=== PATIENT | male | born 1945 | race Caucasian/White ===

== ENCOUNTER 2017-08-21 14:23 | Inpatient (IN) | payer MEDICARE, SELFPAY ==
[2017-08-21] MEDS ORDERED: Aspirin 81 MG Tab.Chew CHEW ONE (14:24)
[2017-08-21] MEDS ORDERED: Famotidine 20 MG/2 ML SDV IVPUSH ONE (14:24)
[2017-08-21] MEDS ORDERED: Ticagrelor 90 MG Tab PO ONE (14:24)
--- NOTE | 2017-08-21 14:24 | EDM.PDOC ---
ED HPI GENERAL MEDICAL PROBLEM - General Chief Complaint: Chest Pain Stated Complaint: Chest pain Time Seen by Provider: 08/21/17 14:24 Source of Information: Reports: Patient, Family (, daughter), Old Records ( [facility] EMR. No paper hospital chart available.) History Limitations: Reports: No Limitations - History of Present Illness INITIAL COMMENTS - FREE TEXT/NARRATIVE: Patient was brought to the emergency room via private automobile by his daughter for evaluation of 05/04 persistent retrosternal chest pain/burning with previous 09/03 discomfort at about 10 PM yesterday evening prior to going to bed. He has apparently had similar type symptoms for the last few days and did take some Zantac prior to going to bed yesterday with only some improvement. He has had some nonspecific generalized weakness, nausea, and burping sensation since about 13:30 hours this afternoon. The patient denies any chest pain/ pressure, heart flutter, dizziness, orthostasis, orthopnea, diaphoresis, paresthesias, recent decreased exercise tolerance, or any other anginal-type symptoms. No recent history of other abdominal pain, diarrhea, melena, gross hematochezia, or any food intolerance, including fatty foods, etc.. The patient also denies any recent fever, cough, wheezing, dyspnea, etc.. Onset: Today, Sudden Onset Date: 08/20/17 Onset Time: 22:00 Duration: Intermittent (As above) Location: Reports: Chest. Denies: Head, Face, Neck, Abdomen, Pelvis, Upper Extremity, Left, Upper Extremity, Right, Generalized, Radiates to Quality: Reports: Burning, Same as Previous Episode Severity: Moderate Improves with: Reports: Medication (As above) Worsens with: Reports: None Context: Reports: Other (As above) Associated Symptoms: Reports: Chest Pain, Nausea/Vomiting (No emesis), Weakness (Nonspecific generalized). 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) (As above) Middle Anterior Chest Pain Score (Numeric/FACES): 6 Chest pain Pain Score (Numeric/FACES): 6 - Related Data Allergies Allergy/AdvReac Type Severity Reaction Status Date / Time ibuprofen Allergy Stomach Verified 11/01/16 02:58 Ache Home Meds: Home Meds Desmopressin Acetate 0.1 mg PO BID #60 12/21/16 [Rx] Finasteride [Proscar] 5 mg PO DAILY #30 tablet 12/21/16 [Rx] Levothyroxine 125 mcg PO DAILY #0 12/21/16 [Rx] Tamsulosin [Flomax] 0.4 mg PO BEDTIME #30 cap.er 12/21/16 [Rx] atorvaSTATin [Lipitor] 10 mg PO BEDTIME #30 12/21/16 [Rx] Cholecalciferol (Vitamin D3) [Vitamin D3] 4,000 unit PO BID 12/31/16 [History] Hydrocortisone [Cortef] 10 mg PO BID 08/21/17 [History] PARoxetine [Paxil] 50 mg PO BEDTIME 08/21/17 [History] Ranitidine [Zantac] 150 mg PO DAILY 08/21/17 [History] Sennosides/Docusate Sodium [Senna S Tablet] 1 each PO DAILY 08/21/17 [History] Solifenacin [Vesicare] 5 mg PO BEDTIME 08/21/17 [History] Terbinafine [LamISIL] 250 mg PO DAILY 08/21/17 [History] Testosterone Cypionate [Depo-Testosterone] 0.5 ml IM Q14D 08/21/17 [History] traZODone HCl [Trazodone HCl] 25 mg PO BEDTIME 08/21/17 [History] Past Medical History HEENT History: Reports: Cataract, Hard of Hearing, Impaired Vision, Other (See Below). 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 Denies: Afib, Aneurysm, Arrhythmia, Blood Clots/VTE/DVT, CAD, Heart Failure, Heart Murmur, Hypertension, [place], PVD Respiratory History: Reports: Intubation, Previous, Other (See Below). Denies: Asthma, Bronchitis, Recurrent, COPD, Intubation, Difficult, Pneumonia, Recurrent , Pneumothorax, Sleep Apnea Gastrointestinal History: Reports: Chronic Constipation, Colon Polyp, Diverticulosis, GERD, Other (See Below). Denies: Celiac Disease, Chronic Diarrhea, Gastritis, GI Bleed, Hepatitis, Inflammatory Bowel Disease, Irritable Bowel Syndrome, Jaundice, Pancreatitis, PUD Other Gastrointestinal History: History of polypectomy x2 with small cecal polyp an additional polyp at 18 cm at time of colonoscopy in 2015 as below, mild dysphagia with no current special diet, note severe anemia in 2017 as below with no workup Genitourinary History: Reports: BPH, Other (See Below). Denies: Acute Renal Failure, Chronic Renal Insuffiency, Renal Calculus, Retention, Urinary, STD, Urinary Incontinence, UTI, Recurrent Other Genitourinary History: Erectile dysfunction Musculoskeletal History: Reports: Arthritis, Back Pain, Chronic, Neck Pain, Chronic, Osteoarthritis. Denies: Amputation, Fracture, Gout, Osteoporosis, RA, SLE Neurological History: Reports: Alzheimers Disease, Headaches, Chronic, Seizure, Other (See Below). 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 Denies : Diabetes, Type I, Diabetes, Type II, Hypoparathyroidism, IDDM, Osteoporosis Other Endocrine/Metabolic History: panhypopituitarism Hematologic History: Reports: Anemia, Iron Deficiency, Other (See Below). Denies: Blood Transfusion(s) Other Hematologic History: Significant iron deficiency anemia in December 2016 with no workup or blood transfusions Immunologic History: Reports: Immunosuppression, Other (See Below). Denies: AIDS, HIV, SLE Other Immunologic History: Panhypopituitarism Oncologic (Cancer) History: Reports: None. Denies: Basal Cell Carcinoma, Colon , Hodgkin's Lymphoma, Leukemia, Malignant Melanoma, Non-Hodgkin's Lymphoma, Prostate, Squamous Cell Carcinoma Dermatologic History: Reports: Other (See Below). Denies: Eczema, Psoriasis Other Dermatologic History: History of actinic keratosis, onychomycosis - Infectious Disease History Infectious Disease History: Reports: None. Denies: C-Difficile, Chicken Pox, Measles, Meningitis, Mononucleosis, MRSA, Mumps, Rheumatic Fever, Rubella, Scarlet Fever, Shingles, VRE - Past Surgical History Head Surgeries/Procedures: Reports: Craniotomy, Other (See Below) Other Head Surgeries/Procedures: Craniotomy on 11/02/16 for removal of infarcted pituitary adenoma HEENT Surgical History: Reports: Eye Surgery, Other (See Below). Denies: Adenoidectomy, Cataract Surgery, Myringotomy w Tube(s), Naso-Sinus Surgery, Oral Surgery, Tonsillectomy Other HEENT Surgeries/Procedures: Blepharoplasty of his upper eyelids bilaterally on 05/01/16 Cardiovascular Surgical History: Reports: None. Denies: Varicose, Vascular Surgery Respiratory Surgical History: Reports: None. Denies: Thoracentesis GI Surgical History: Reports: Colonoscopy, Hernia, Inguinal, Polypectomy, Other (See Below). Denies: Appendectomy, Cholecystectomy, EGD, Hernia, Abdominal, Hernia Repair/Other Other GI Surgeries/Procedures: Left inguinal hernia repair in about 1999, colonoscopy on 09/08/15 with removal of benign colonic polyps as above, PEG tube placement in October 2016 after cranial surgery as above with subsequent removal on 12/20/16 Male Surgical History: Reports: Circumcision, Other (See Below). Denies: TURP-Transurethral Resection of Prostate, Vasectomy Other Male Surgeries/Procedures: Circumcision as an Endocrine Surgical History: Reports: Pituitary Tumor Resection, Other (See Below ). Denies: Thyroid Biopsy Other Endocrine Surgeries/Procedures: As above Neurological Surgical History: Reports: None. Denies: C-Spine, Discectomy, Laminectomy, Lumbar Spine, Spinal Fusion, Vertebroplasty Musculoskeletal Surgical History: Reports: None. Denies: Arthroscopic Procedure , Carpal Tunnel, Ganglion Cyst, Joint Replacement, ORIF, Shoulder Surgery Oncologic Surgical History: Reports: None Dermatological Surgical History: Reports: None - Past Imaging History Past Imaging History: Reports: CAT Scan (Last CT of the brain in March 2017 with previous evaluation on 10/31/16 and CTA of the brain on 11/01/[address] of the brain on 10/23/16 and 10/24/16), Swallow Study (Last on with previous postoperative evaluation in October 2016), Ultrasound (Pelvic ultrasound on 03/07/17) Social & Family History - Family History HEENT: Reports: Cataract, Other (See Below). Denies: Allergic Rhinitis, Glaucoma, Macular Degeneration, Retinal Detachment Other HEENT Family History: Sister with cataracts Cardiac: Reports: CAD, High Cholesterol, Hypertension, AZ, Other (See Below). Denies: Aneurysm, Arrhythmia, Blood Clots/VTE/DVT, Heart Failure, Heart Murmur, Pacemaker, PVD/COD, Stent, Syncope Other Cardiac Family History: Father with fatal AZ at about age 83, mother with hypertension and hyperlipidemia Respiratory: Reports: None. Denies: Asthma, COPD, PE, Pneumothorax, Sleep Apnea GI: Reports: None. Denies: Celiac Disease, Cholelithiasis, Colon Polyps, GERD, GI bleed, Inflammatory Bowel Disease, Irritable Bowel Syndrome, PUD : Reports: None. Denies: Dialysis, Renal Calculus, Renal Disease/ Insufficiency OBGYN: Reports: None. Denies: Dysfunctional uterine bleeding, Endometriosis, Fibroids, Recurrent Spontaneous Musculoskeletal: Reports: None. Denies: Arthritis, Gout, Osteoarthritis, RA, SLE Neurological: Reports: None. Denies: Alzheimers Disease, Cerebral Aneurysms, CVA, Dementia, Migraines, MS, Parkinson's, Seizure, TIA Psychiatric: Reports: Anxiety, Depression, Psych Hospitalization(s), Psychosis, Other (See Below). Denies: Abuse, Victim of, ADD, ADHD, PTSD, Suicide Attempt Other Psychiatric Family History: Brother with alcohol abuse/addiction and anxiety depression disorder with inpatient therapy required, sister with anxiety depression and possible psychosis Endocrine/Metabolic: Reports: Diabetes, type II, IDDM, Other (See Below) Other Endocrine/Metabolic Family History: Sister with IDDM, mother with AODM Hematologic: Reports: None. Denies: Anemia Immunologic: Reports: None. Denies: AIDS, HIV, SLE Dermatologic: Reports: None. Denies: Eczema, Psoriasis Oncologic: Reports: Metastatic, Other (See Below) Other Oncologic Family History: Sister with unknown type of primary metastatic cancer in her 70s, brother with unknown type of primary metastatic cancer at age 88 - Tobacco Use Smoking Status *Q: Former Smoker Years of Tobacco use: 56 Packs/Tins Daily: 0.3 (Started smoking at age 16 with additional current chewing tobacco use of one quarter pack per day) Used Tobacco, but Quit: No Smoking Cessation Information Provided To Patient: Yes Second Hand Smoke Exposure: No Second Hand Smoke Education Provided: No - Caffeine Use Caffeine Use: Reports: Soda (One soda per day), Tea (3 cups per day). Denies: Coffee, Energy Drinks - Alcohol Use Alcohol Use History: Yes Days Per Week of Alcohol Use: 0 (Previous history of alcohol abuse with last use in 1976 as above) Alcohol Use in Last Twelve Months: No - Recreational Drug Use Recreational Drug Use: No Drug Use in Last 12 Months: No Recreational Drug Type: Denies: Amphetamines (Speed), Cocaine, Heroin, Inhalants (Glues, Solvents, Aerosols), Ketamines, LSD (Acid), Marijuana/Hashish , Morphine - Living Situation & Occupation Living situation: Reports: (1971, 3 children) Occupation: Retired (Retired [employer] at age 60) ED ROS GENERAL - Review of Systems Review Of Systems: See Below Constitutional: Reports: Weakness (Specific generalized). Denies: Fever, Chills , Fatigue, Night Sweats, Diaphoresis, Decreased Appetite, Weight Loss, Weight Gain HEENT: Reports: Glasses, Hearing Loss. Denies: Dental Pain, Ear Pain, Rhinitis , Sinus Problem, Throat Pain, Throat Swelling, Vertigo, Vision Change Respiratory: Reports: No Symptoms. Denies: Shortness of Breath, Wheezing, Pleuritic Chest Pain, Cough Cardiovascular: Reports: Chest Pain, Blood Pressure Problem, Lightheadedness. Denies: Edema, Orthopnea, Palpitations, PND, Syncope Endocrine: Reports: No Symptoms. Denies: Fatigue GI/Abdominal: Reports: Abdominal Pain (Heartburn), Nausea. Denies: Anorexia, Black Stool, Bloody Stool, Constipation, Diarrhea, Decreased Appetite, Difficulty Swallowing, Distension, Flatus, Hematemesis, Hematochezia, Melena, Stool Incontinence, Vomiting : Reports: No Symptoms. Denies: Discharge, Dysuria, Flank Pain, Frequency, Hematuria, Incontinence, Pain, Urgency, Urinary Retention Musculoskeletal: Reports: No Symptoms. Denies: Neck Pain, Shoulder Pain, Arm Pain, Back Pain, Leg Pain Skin: Reports: No Symptoms. Denies: Pallor, Diaphoresis, Bruising, Wound Neurological: Reports: Confusion (Stable borderline), Dizziness, Weakness ( Nonspecific generalized). Denies: Headache, Numbness, Paresthesia, Pre- Existing Deficit, Seizure, Syncope, Tingling, Tremors, Trouble Speaking, Difficulty Walking, Change in Speech, Gait Disturbance Psychiatric: Reports: Confusion (As above). Denies: Agitation, Anxiety, Cravings, Depression, Hallucinations, Homicidal Ideation, Mood Lability, Suicidal Ideation Hematologic/Lymphatic: Reports: No Symptoms Immunologic: Reports: No Symptoms ED EXAM, GENERAL - Physical Exam Exam: See Below Exam Limited By: No Limitations General Appearance: Alert, WD/WN, No Apparent Distress Eye Exam: Bilateral Eye: EOMI, Normal Inspection (No nystagmus), PERRL Ears: Normal External Exam, Normal Canal (Moderate cerumen in the bases bilaterally), Normal TMs, Hearing Loss (Mild to moderate bilateral presbycusis no hearing aide therapy). No: Hearing Grossly Normal Nose: Normal Inspection, Normal Mucosa, No Blood Throat/Mouth: Normal Inspection, Normal Lips, Normal Teeth, Normal Gums, Normal Oropharynx, Normal Voice, No Airway Compromise. No: Dysphagia, Perioral Cyanosis Head: Atraumatic, Normocephalic. No: Facial Swelling, Facial Tenderness, Sinus Tenderness Neck: Supple, Non-Tender, Full Range of Motion, Carotid Bruit (Mild bilateral carotid bruits). No: Lymphadenopathy (L), Lymphadenopathy (R), Thyromegaly Respiratory/Chest: No Respiratory Distress, No Accessory Muscle Use, Chest Non- Tender, Rales (Bilateral basilar rales). No: Rhonchi, Wheezing, Pleural Rub, Retractions Cardiovascular: No Edema, No Gallop, No JVD, No Murmur, No Rub, Tachycardia ( Mild sinus tachycardia with regular rhythm). No: Systolic Murmur, Gallop/S3, Gallop/S4 Peripheral Pulses: 2+: Radial (L), Radial (R), Dorsalis Pedis (L), Dorsalis Pedis (R) GI/Abdominal: Normal Bowel Sounds, Soft, Non-Tender, No Organomegaly, No Distention, No Abnormal Bruit, No Mass. No: Guarding (Male) Exam: Deferred Rectal (Males) Exam: Deferred Back Exam: Normal Inspection, Full Range of Motion. No: CVA Tenderness (L), CVA Tenderness (R), Muscle Spasm Extremities: Normal Inspection, Normal Range of Motion, Non-Tender, No Pedal Edema, Normal Capillary Refill. No: Melvi's Sign Neurological: Alert, Oriented, CN II-XII Intact, Normal Cognition, Normal Gait, Normal Reflexes, No Motor/Sensory Deficits, Confused (Borderline) Psychiatric: Normal Affect, Normal Mood Skin Exam: Warm, Dry, Intact, Normal Color, No Rash. No: Diaphoretic, Ecchymosis, Wound/Incision Lymphatic: No Adenopathy EKG INTERPRETATION EKG Date: 08/21/17 Time: 14:25 Rhythm: NSR Rate (Beats/Min): 96 [place]: Normal (Left) P-Wave: Enlarged (Mild diffuse biphasic P waves with new poor R-wave progression in the anterior leads) QRS: Wide (QRS interval 0.10 seconds representing repolarization changes) ST-T: Other (Resolved previous T-wave inversion in leads 3 and V1 with new T- wave inversion in lead aVL and nonspecific ST changes in leads 1 and 2) QT: Normal NM/PQ Interval: 0.16 seconds Comparison: Change From Previous EKG (As above since 11/01/16) EKG Interpretation Comments: 1. Possible inferior wall ischemia 2. Repolarization changes 3. Left atrial enlargement Course - Vital Signs Last Recorded V/S: Last Vital Signs Temp 36.7 C 08/21/17 16:00 Pulse 78 08/21/17 16:00 Resp 20 08/21/17 16:00 BP 109/73 08/21/17 16:00 Pulse Ox 100 08/21/17 16:00 Vital Signs - 24 hr 08/21/17 08/21/17 08/21/17 14:24 14:26 15:10 Temperature [ 36.5 C 36.5 C Temporal] Pulse, 94 88 Peripheral [ Right Pulse Oximetry] Respiratory 20 20 Rate Blood Pressure 122/72 115/72 [Right Upper Arm] O2 Sat by Pulse 100 99 Oximetry O2 Sat by Pulse 100 Oximetry [ Nasal Cannula] 08/21/17 08/21/17 08/21/17 15:19 15:33 16:00 Temperature [ 36.7 C Temporal] Pulse, 83 78 78 Peripheral [ Right Pulse Oximetry] Respiratory 19 19 20 Rate Blood Pressure 112/66 117/70 109/73 [Right Upper Arm] O2 Sat by Pulse 100 100 100 Oximetry O2 Sat by Pulse Oximetry [ Nasal Cannula] - Orders/Labs/Meds Orders: Active Orders 24 hr Category Date Time Status Cardiac Monitoring [RC] . DIRECTED Care 08/21/17 14:24 Active EKG Documentation Completion [RC] ASDIRECTED Care 08/21/17 14:24 Active Oxygen Therapy, ED [RC] CONTINUOUS Care 08/21/17 14:24 Active Peripheral IV Care [RC] . DIRECTED Care 08/21/17 14:24 Active Pulse Oximetry [RC] CONTINUOUS Care 08/21/17 14:24 Active Up With Assistance [RC] PFP Care 08/21/17 14:24 Active Vital Signs [RC] PFP Care 08/21/17 14:24 Active Nothing per Oral Now Diet [DIET] Diet 08/21/17 Breakfast Active Chest 1V Frontal [CR] Stat Exams 08/21/17 14:24 Taken Enoxaparin [Lovenox] Med 08/21/17 15:52 Active 70 mg SUBCUT Q24H Sodium Chloride 0.9% [Saline Flush] Med 08/21/17 14:24 Active 10 ml FLUSH ASDIRECTED PRN Obtain Past Medical Record [OM.PC] Urgent Oth 08/21/17 14:24 Active Peripheral IV Insertion Adult [OM.PC] Stat Oth 08/21/17 14:24 Ordered Resuscitation Status Stat Resus Stat 08/21/17 14:24 Ordered Medication Orders Enoxaparin Sodium (Lovenox) 70 mg SUBCUT Q24H [facility] Last Admin: 08/21/17 15:55 Dose: 70 mg Sodium Chloride (Saline Flush) 10 ml FLUSH ASDIRECTED PRN PRN Reason: Keep Vein Open Last Admin: 08/21/17 14:36 Dose: 10 ml Labs: Laboratory Tests 08/21/17 08/21/17 08/21/17 Range/Units 14:35 14:35 14:35 WBC 8.2 (4.0-10.2) K/uL RBC 4.26 L (4.33-5.41) M/uL Hgb 13.7 D (13.1-16.8) g/dL Hct 40.0 (39.0-49.0) % MCV 93.9 (84.0-98.0) fL MCH 32.2 (28.2-33.3) pg MCHC 34.3 (31.7-36.0) g/dL RDW 13.4 (11.2-14.1) % Plt Count 209 D (150-350) K/uL Neut % (Auto) 76.8 (45.0-80.0) % Lymph % (Auto) 13.3 (10.0-50.0) % [place] % (Auto) 8.9 (2.0-14.0) % Eos % (Auto) 0.6 (0.0-5.0) % Baso % (Auto) 0.4 (0.0-2.0) % Neut # (Auto) 6.33 (1.40-7.00) K/uL Lymph # (Auto) 1.10 (0.50-3.50) K/uL [place] # (Auto) 0.73 (0.00-1.00) K/uL Eos # (Auto) 0.05 (0.00-0.50) K/uL Baso # (Auto) 0.03 (0.00-0.20) K/uL PT 10.4 (9.8-11.7) SEC INR 1.0 APTT 25.6 (23.5-30.0) SEC D-Dimer, Quantitative 644 H (0-400) ng/mL Sodium (136-145) mmol/L Potassium (3.5-5.1) mmol/L Chloride (98-107) mmol/L Carbon Dioxide (21.0-32.0) mmol/L BUN (7-18) mg/dL Creatinine (0.51-1.17) mg/dL Est Cr Clr Drug Dosing mL/min Estimated GFR (MDRD) mL/min Glucose (74-106) mg/dL Lactic Acid (0.4-2.0) mmol/L Uric Acid (2.6-7.2) mg/dL Calcium (8.5-10.1) mg/dL Magnesium (1.8-2.4) mg/dL Total Bilirubin (0.2-1.0) mg/dL AST (15-37) U/L ALT (12-78) U/L Alkaline Phosphatase (46-116) IU/L Creatine Kinase (26-308) U/L Creatine Kinase Index (0.0-2.5) % CK-MB (CK-2) (0.00-3.60) ng/mL Troponin I (0.000-0.056) ng/mL NT-Pro-B Natriuret Pep (0-125) pg/mL Total Protein (6.4-8.2) g/dL Albumin (3.4-5.0) g/dL TSH, Ultra Sensitive (0.358-3.740) mIU/mL Ethyl Alcohol (0.000-0.080) g/dL 08/21/17 08/21/17 08/21/17 Range/Units 14:35 14:35 14:35 WBC (4.0-10.2) K/uL RBC (4.33-5.41) M/uL Hgb (13.1-16.8) g/dL Hct (39.0-49.0) % MCV (84.0-98.0) fL MCH (28.2-33.3) pg MCHC (31.7-36.0) g/dL RDW (11.2-14.1) % Plt Count (150-350) K/uL Neut % (Auto) (45.0-80.0) % Lymph % (Auto) (10.0-50.0) % [place] % (Auto) (2.0-14.0) % Eos % (Auto) (0.0-5.0) % Baso % (Auto) (0.0-2.0) % Neut # (Auto) (1.40-7.00) K/uL Lymph # (Auto) (0.50-3.50) K/uL [place] # (Auto) (0.00-1.00) K/uL Eos # (Auto) (0.00-0.50) K/uL Baso # (Auto) (0.00-0.20) K/uL PT (9.8-11.7) SEC INR APTT (23.5-30.0) SEC D-Dimer, Quantitative (0-400) ng/mL Sodium 142 (136-145) mmol/L Potassium 3.9 (3.5-5.1) mmol/L Chloride 107 (98-107) mmol/L Carbon Dioxide 26.2 (21.0-32.0) mmol/L BUN 16 (7-18) mg/dL Creatinine 1.04 (0.51-1.17) mg/dL Est Cr Clr Drug Dosing 60.29 mL/min Estimated GFR (MDRD) > 60 mL/min Glucose 138 H (74-106) mg/dL Lactic Acid 1.9 (0.4-2.0) mmol/L Uric Acid 5.2 (2.6-7.2) mg/dL Calcium 9.0 (8.5-10.1) mg/dL Magnesium 2.0 (1.8-2.4) mg/dL Total Bilirubin 0.4 (0.2-1.0) mg/dL AST 13 L (15-37) U/L ALT 17 (12-78) U/L Alkaline Phosphatase 100 (46-116) IU/L Creatine Kinase 37 (26-308) U/L Creatine Kinase Index 0.8 (0.0-2.5) % CK-MB (CK-2) 0.30 (0.00-3.60) ng/mL Troponin I 0.000 (0.000-0.056) ng/mL NT-Pro-B Natriuret Pep 180 H (0-125) pg/mL Total Protein 6.9 (6.4-8.2) g/dL Albumin 3.7 (3.4-5.0) g/dL TSH, Ultra Sensitive 0.007 L (0.358-3.740) mIU/mL Ethyl Alcohol 0.000 (0.000-0.080) g/dL Meds: Medications Generic Name Dose Route Start Last Admin Trade Name Freq PRN Reason Stop Dose Admin Enoxaparin Sodium 70 mg 08/21/17 15:52 08/21/17 15:55 Lovenox SUBCUT 70 mg Q24H JORGE Administration Sodium Chloride 10 ml 08/21/17 14:24 08/21/17 14:36 Saline Flush FLUSH 10 ml ASDIRECTED PRN Administration Keep Vein Open Discontinued Medications Generic Name Dose Route Start Last Admin Trade Name Freq PRN Reason Stop Dose Admin Aspirin 324 mg 08/21/17 14:24 08/21/17 14:38 Aspirin CHEW 08/21/17 14:25 324 mg ONETIME ONE Administration Famotidine 40 mg 08/21/17 14:24 08/21/17 14:36 Pepcid IVPUSH 08/21/17 14:25 40 mg ONETIME ONE Administration Ticagrelor 180 mg 08/21/17 14:24 08/21/17 14:38 Brilinta PO 08/21/17 14:25 180 mg ONETIME ONE Administration - Radiology Interpretation Free Text/Narrative:: 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 Possible right middle lobe atelectasis versus infiltrates versus CHF. Mild aortic valve calcification Departure - Departure Time of Disposition: 16:05 Disposition: Admitted As Inpatient 64 Condition: Fair Clinical Impression: Peptic reflux disease, Mixed anxiety depressive disorder, Panhypopituitarism, Alcoholism in remission, D-dimer, elevated Chest pain Qualifiers: Chest pain type: chest pain due to myocardial ischemia Ischemic chest pain type : stable angina pectoris Qualified Code(s): I20.8 - Other forms of angina pectoris Hyperlipidemia Qualifiers: Hyperlipidemia type: unspecified Qualified Code(s): E78.5 - Hyperlipidemia, unspecified Iron deficiency anemia Qualifiers: Iron deficiency anemia type: unspecified iron deficiency Qualified Code(s): D50.9 - Iron deficiency anemia, unspecified Osteoarthritis Qualifiers: Osteoarthritis location: multiple joints Osteoarthritis type: primary Qualified Code(s): M15.0 - Primary generalized (osteo)arthritis CHF (congestive heart failure) Qualifiers: Congestive heart failure type: unspecified congestive heart failure type Congestive heart failure chronicity: acute Qualified Code(s): I50.9 - Heart failure, unspecified - Problem List & Annotations (1) Chest pain SNOMED Code(s): 28661643 Code(s): R07.9 - CHEST PAIN, UNSPECIFIED Status: Acute Priority: High Current Visit: Yes Onset Date: ~08/20/17 Annotation/Comment:: Chest pain protocol initiated immediately on patient's arrival to the emergency room. No beta leeanna therapy was given. He was chest pain free shortly upon arrival to our facility with no chest pain or other anginal complaints prior to admission. Initiate standard rule out [place] orders with cardiology consultation depending on his clinical course. Probable Cardiolite stress test on an outpatient basis Qualifiers: Chest pain type: chest pain due to myocardial ischemia Ischemic chest pain type: stable angina pectoris Qualified Code(s): I20.8 - Other forms of angina pectoris (2) CHF (congestive heart failure) SNOMED Code(s): 67327534 Code(s): I50.9 - HEART FAILURE, UNSPECIFIED Status: Acute Priority: High Current Visit: Yes Onset Date: 08/21/17 Annotation/Comment:: Only mild BNP elevation although moderate centralized CHF by chest x-ray. Low-dose diuretic therapy to be initiated on admission. Consider additional ALYSE inhibitor , although blood pressure somewhat decreased on admission. Consider echocardiogram and an outpatient basis Qualifiers: Congestive heart failure type: unspecified congestive heart failure type Congestive heart failure chronicity: acute Qualified Code(s): I50.9 - Heart failure, unspecified (3) D-dimer, elevated SNOMED Code(s): 933112943 Code(s): R79.89 - OTHER SPECIFIED ABNORMAL FINDINGS OF BLOOD CHEMISTRY Status: Acute Priority: High Current Visit: Yes Onset Date: 08/21/17 Annotation/Comment:: No clinical evidence of DVT or PE. Initial subcutaneous Lovenox was initiated in the emergency room. 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 Free T4 and T3 to be conducted. Qualifiers: Hypothyroidism type: acquired Qualified Code(s): E03.9 - Hypothyroidism, unspecified (5) Hypoalbuminemia SNOMED Code(s): 478119770 Code(s): E88.09 - OTH DISORDERS OF PLASMA-PROTEIN METABOLISM, NEC Status: Acute Priority: Medium Current Visit: No Onset Date: 01/01/17 Annotation /Comment:: Previous hypoalbuminemia resolved at this time with patient recently noncompliant with his high-protein Glucerna supplements recently. This should be continued on a regular basis with the patient and his family counseled on the importance of compliance with this therapy (6) Hyperlipidemia SNOMED Code(s): 59206701 Code(s): E78.5 - HYPERLIPIDEMIA, UNSPECIFIED Status: Chronic Priority: Medium Current Visit: Yes Annotation/Comment:: Currently under therapy with lipid panel in the a.m. Qualifiers: Hyperlipidemia type: unspecified Qualified Code(s): E78.5 - Hyperlipidemia , unspecified (7) Panhypopituitarism SNOMED Code(s): 72598846 Code(s): E23.0 - HYPOPITUITARISM Status: Chronic Priority: High Current Visit: Yes Annotation/Comment:: Nonsymptomatic at this time. Continue to observe closely (8) Osteoarthritis SNOMED Code(s): 312346535 Code(s): M19.90 - UNSPECIFIED OSTEOARTHRITIS, UNSPECIFIED SITE Status: Chronic Priority: Medium Current Visit: Yes Annotation/Comment:: Stable by history Qualifiers: Osteoarthritis location: multiple joints Osteoarthritis type: primary Qualified Code(s): M15.0 - Primary generalized (osteo)arthritis (9) Peptic reflux disease SNOMED Code(s): 21516477 Code(s): K21.9 - GASTRO-ESOPHAGEAL REFLUX DISEASE WITHOUT ESOPHAGITIS Status: Chronic Priority: Medium Current Visit: Yes Annotation/Comment:: Stable by history with high-dose IV Pepcid given in the emergency room as GI prophylaxis (10) Mixed anxiety depressive disorder SNOMED Code(s): 556426961 Code(s): F41.8 - OTHER SPECIFIED ANXIETY DISORDERS Status: Chronic Priority: Medium Current Visit: Yes Annotation/Comment:: Stable by history despite mild occasional confusion as above (11) Dementia SNOMED Code(s): 87088987 Code(s): F03.90 - UNSPECIFIED DEMENTIA WITHOUT BEHAVIORAL DISTURBANCE Status: Chronic Priority: High Current Visit: No Annotation/Comment:: Some 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 Note previous history of pituitary adenoma and brain surgery with current muñoz-hypopituitarism, which is watched closely by his [facility] set[facility] in [place]. Qualifiers: Dementia type: unspecified type Dementia behavioral disturbance: without behavioral disturbance Qualified Code(s): F03.90 - Unspecified dementia without behavioral disturbance (12) Iron deficiency anemia SNOMED Code(s): 99425034 Code(s): D50.9 - IRON DEFICIENCY ANEMIA, UNSPECIFIED Status: Chronic Priority: Medium Current Visit: Yes Annotation/Comment:: History of iron deficiency anemia with no anemia at this time, however no previous workup after significant anemia in December 2016 as above. 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 Normal alcohol level - Problem List Review Problem List Initiated/Reviewed/Updated: Yes - My Orders Last 24 Hours: My Active Orders 08/21/17 14:24 Cardiac Monitoring [RC] . DIRECTED EKG Documentation Completion [RC] ASDIRECTED Oxygen Therapy, ED [RC] CONTINUOUS Peripheral IV Care [RC] . DIRECTED Pulse Oximetry [RC] CONTINUOUS Up With Assistance [RC] PFP Vital Signs [RC] PFP Chest 1V Frontal [CR] Stat Sodium Chloride 0.9% [Saline Flush] 10 ml FLUSH ASDIRECTED PRN Obtain Past Medical Record [OM.PC] Urgent Peripheral IV Insertion Adult [OM.PC] Stat Resuscitation Status Stat 08/21/17 15:52 Enoxaparin [Lovenox] 70 mg SUBCUT Q24H 08/21/17 Breakfast Nothing per Oral Now Diet [DIET] - Assessment/Plan Admission H&P: Please use this note as an admission H&P Last 24 Hours: My Active Orders 08/21/17 14:24 Cardiac Monitoring [RC] . DIRECTED EKG Documentation Completion [RC] ASDIRECTED Oxygen Therapy, ED [RC] CONTINUOUS Peripheral IV Care [RC] . DIRECTED Pulse Oximetry [RC] CONTINUOUS Up With Assistance [RC] PFP Vital Signs [RC] PFP Chest 1V Frontal [CR] Stat Sodium Chloride 0.9% [Saline Flush] 10 ml FLUSH ASDIRECTED PRN Obtain Past Medical Record [OM.PC] Urgent Peripheral IV Insertion Adult [OM.PC] Stat Resuscitation Status Stat 08/21/17 15:52 Enoxaparin [Lovenox] 70 mg SUBCUT Q24H 08/21/17 Breakfast Nothing per Oral Now Diet [DIET] Assessment:: As above Plan: As above. Extensive precautions were given to the patient and his family, who are in agreement with the treatment plan. The patient will require about 3-4 days of inpatient/acute care secondary to multiple health problems as above.
[2017-08-21] MEDS: Sodium Chloride 0.9% 10 ML Syringe FLUSH PRN ×2 (14:36→17:21)
[2017-08-21 15:09] LABS: CHLORIDE,CL 107 mmol/L (98-107); SODIUM,NA 142 mmol/L (136-145)
[2017-08-21] MEDS ORDERED: Enoxaparin 80 MG/0.8 ML Syringe SUBCUT SCH (15:52)
[2017-08-21] MEDS ORDERED: Sodium Chloride 0.9% 10 ML Syringe FLUSH PRN (16:15)
[2017-08-21] MEDS ORDERED: Acetaminophen 325 MG Tab PO PRN (16:15)
[2017-08-21] MEDS ORDERED: Temazepam 15 MG Cap PO PRN (16:15)
[2017-08-21] MEDS ORDERED: TESTOSTERONE CYPIONATE IM SCH (16:30)
[2017-08-21] MEDS ORDERED: Iopamidol 755 Mg/ML 100 ML Bottle IVPUSH ONE (17:00)
[2017-08-21] MEDS: Trospium 20 MG Tab PO SCH (17:20)
[2017-08-21] MEDS: Cholecalciferol (Vitamin D3) 1,000 Unit Tab PO SCH (17:20)
[2017-08-21] MEDS: Potassium Chloride 20 MEQ Tab.ER PO SCH (17:20)
[2017-08-21] MEDS: Furosemide 40 MG/4 ML VIAL IVPUSH SCH (17:21)
[2017-08-21] MEDS: traZODone 50 MG Tab PO SCH (19:21)
[2017-08-21] MEDS: Tamsulosin 0.4 MG Cap.ER PO SCH (19:21)
[2017-08-21] MEDS: atorvaSTATin 10 MG Tab PO SCH (19:21)
[2017-08-21] MEDS: PARoxetine 20 MG Tab PO SCH (19:21)
[2017-08-22] MEDS: Sodium Chloride 0.9% 10 ML Syringe FLUSH PRN ×2 (06:01→16:57)
[2017-08-22] MEDS: Furosemide 40 MG/4 ML VIAL IVPUSH SCH ×2 (06:01→16:57)
[2017-08-22] MEDS: Famotidine 20 MG Tab PO SCH (07:58)
[2017-08-22] MEDS: Trospium 20 MG Tab PO SCH ×2 (07:58→17:03)
[2017-08-22] MEDS: Finasteride 5 MG Tab PO SCH (07:58)
[2017-08-22] MEDS: Cholecalciferol (Vitamin D3) 1,000 Unit Tab PO SCH ×2 (07:58→17:02)
[2017-08-22] MEDS: Potassium Chloride 20 MEQ Tab.ER PO SCH ×2 (07:58→17:02)
[2017-08-22] MEDS: Levothyroxine 50 MCG Tab PO SCH (08:00)
--- NOTE | 2017-08-22 08:42 | PCM.PN ---
- General Info Date of Service: 08/22/17 Admission Dx/Problem (Free Text): 1. Chest pain 2. CHF Functional Status: Reports: Pain Controlled, Tolerating Diet, Ambulating, Urinating, New Symptoms. Denies: Incentive Spirometry Pain Score: 0 - Review of Systems General: Reports: No Symptoms. Denies: Fever, Weakness, Fatigue, Malaise, Chills, Night Sweats, Appetite (Appetite good) HEENT: Reports: No Symptoms. Denies: Ear Pain, Eye Pain, Headaches, Sinus Congestion, Sore Throat, Rhinitis, Visual Changes Pulmonary: Reports: No Symptoms. Denies: Shortness of Breath, Pleuritic Chest Pain, Cough, Sputum, Wheezing Cardiovascular: Reports: No Symptoms. Denies: Chest Pain, Palpitations, Dyspnea on Exertion, Orthopnea, PND, Edema, Lightheadedness Gastrointestinal: Reports: No Symptoms, Other (No bowel movement to this point) . Denies: Abdominal Pain, Constipation, Decreased Appetite, Diarrhea, Difficulty Swallowing, Flatus, Hematochezia, Melena, Nausea, Vomiting Genitourinary: Reports: No Symptoms. Denies: Dysuria, Frequency, Burning, Urgency, Hematuria, Retention, Flank Pain Musculoskeletal: Reports: No Symptoms. Denies: Neck Pain, Shoulder Pain, Arm Pain, Back Pain, Leg Pain Skin: Reports: No Symptoms. Denies: Diaphoresis, Bruising Neurological: Reports: No Symptoms. Denies: Confusion, Dizziness, Headache, Numbness, Paresthesia, Tingling, Weakness Psychiatric: Reports: No Symptoms. Denies: Confusion, Depression, Anxiety, Agitation, Hallucinations - Patient Data Vitals - Most Recent: Last Vital Signs Temp 36.7 C 08/22/17 08:00 Pulse 77 08/22/17 08:00 Resp 16 08/22/17 08:00 BP 115/63 08/22/17 08:00 Pulse Ox 96 08/22/17 08:00 Vital Signs - 24 hr 08/21/17 08/21/17 08/21/17 14:24 14:26 15:10 Temperature [ Oral] Temperature [ 36.5 C 36.5 C Temporal] Pulse, 94 88 Peripheral [ Right Pulse Oximetry] Respiratory 20 20 Rate Blood Pressure 122/72 115/72 [Right Upper Arm] O2 Sat by Pulse 100 99 Oximetry O2 Sat by Pulse 100 Oximetry [ Nasal Cannula] 08/21/17 08/21/17 08/21/17 15:19 15:33 16:00 Temperature [ Oral] Temperature [ 36.7 C Temporal] Pulse, 83 78 78 Peripheral [ Right Pulse Oximetry] Respiratory 19 19 20 Rate Blood Pressure 112/66 117/70 109/73 [Right Upper Arm] O2 Sat by Pulse 100 100 100 Oximetry O2 Sat by Pulse Oximetry [ Nasal Cannula] 08/21/17 08/21/17 08/21/17 16:15 16:50 19:29 Temperature [ 36.6 C Oral] Temperature [ 36.9 C Temporal] Pulse, 72 73 Peripheral [ Right Pulse Oximetry] Respiratory 12 18 Rate Blood Pressure 135/73 136/77 [Right Upper Arm] O2 Sat by Pulse 100 100 99 Oximetry O2 Sat by Pulse 100 Oximetry [ Nasal Cannula] 08/22/17 08/22/17 08/22/17 00:00 04:00 08:00 Temperature [ 36.6 C 36.7 C Oral] Temperature [ 36.7 C Temporal] Pulse, 94 82 77 Peripheral [ Right Pulse Oximetry] Respiratory 16 18 16 Rate Blood Pressure 113/56 L 115/64 115/63 [Right Upper Arm] O2 Sat by Pulse 98 94 L 96 Oximetry O2 Sat by Pulse Oximetry [ Nasal Cannula] Weight - Most Recent: 72.575 kg I&O - Last 24 Hours: Intake & Output 08/21/17 08/22/17 08/22/17 22:59 06:59 14:59 Intake Total 220 Output Total 300 Balance -80 Imaging Impressions - Last 24 Hours: engine monitor shows normal sinus rhythm with heart rates in the 70s and 90s with only very occasional PVC noted with no other significant arrhythmia Lab Results Last 24 Hours: Laboratory Results - last 24 hr 08/21/17 08/22/17 08/22/17 Range/Units 21:00 06:55 06:55 WBC 7.4 (4.0-10.2) K/uL RBC 4.37 (4.33-5.41) M/uL Hgb 14.0 (13.1-16.8) g/dL Hct 41.2 (39.0-49.0) % MCV 94.3 (84.0-98.0) fL MCH 32.0 (28.2-33.3) pg MCHC 34.0 (31.7-36.0) g/dL RDW 13.5 (11.2-14.1) % Plt Count 218 (150-350) K/uL Neut % (Auto) 62.7 (45.0-80.0) % Lymph % (Auto) 22.4 (10.0-50.0) % Cook % (Auto) 12.2 (2.0-14.0) % Eos % (Auto) 2.2 (0.0-5.0) % Baso % (Auto) 0.5 (0.0-2.0) % Neut # (Auto) 4.63 (1.40-7.00) K/uL Lymph # (Auto) 1.65 (0.50-3.50) K/uL Cook # (Auto) 0.90 (0.00-1.00) K/uL Eos # (Auto) 0.16 (0.00-0.50) K/uL Baso # (Auto) 0.04 (0.00-0.20) K/uL D-Dimer, Quantitative 436 H (0-400) ng/mL Sodium (136-145) mmol/L Potassium (3.5-5.1) mmol/L Chloride (98-107) mmol/L Carbon Dioxide (21.0-32.0) mmol/L BUN (7-18) mg/dL Creatinine (0.51-1.17) mg/dL Est Cr Clr Drug Dosing mL/min Estimated GFR (MDRD) mL/min Glucose (74-106) mg/dL Hemoglobin A1c (4.3-5.7) % Calcium (8.5-10.1) mg/dL Total Bilirubin (0.2-1.0) mg/dL AST (15-37) U/L ALT (12-78) U/L Alkaline Phosphatase (46-116) IU/L Creatine Kinase 40 (26-308) U/L Creatine Kinase Index 0.8 (0.0-2.5) % CK-MB (CK-2) 0.30 (0.00-3.60) ng/mL Troponin I 0.000 (0.000-0.056) ng/mL NT-Pro-B Natriuret Pep (0-125) pg/mL Total Protein (6.4-8.2) g/dL Albumin (3.4-5.0) g/dL Triglycerides (30-150) mg/dL Cholesterol (100-200) mg/dL LDL Cholesterol, Calc (0-100) mg/dL HDL Cholesterol (40-60) mg/dL Free T4 (0.76-1.46) ng/dL 08/22/17 08/22/17 Range/Units 06:55 06:55 WBC (4.0-10.2) K/uL RBC (4.33-5.41) M/uL Hgb (13.1-16.8) g/dL Hct (39.0-49.0) % MCV (84.0-98.0) fL MCH (28.2-33.3) pg MCHC (31.7-36.0) g/dL RDW (11.2-14.1) % Plt Count (150-350) K/uL Neut % (Auto) (45.0-80.0) % Lymph % (Auto) (10.0-50.0) % Cook % (Auto) (2.0-14.0) % Eos % (Auto) (0.0-5.0) % Baso % (Auto) (0.0-2.0) % Neut # (Auto) (1.40-7.00) K/uL Lymph # (Auto) (0.50-3.50) K/uL Cook # (Auto) (0.00-1.00) K/uL Eos # (Auto) (0.00-0.50) K/uL Baso # (Auto) (0.00-0.20) K/uL D-Dimer, Quantitative (0-400) ng/mL Sodium 143 (136-145) mmol/L Potassium 3.9 (3.5-5.1) mmol/L Chloride 106 (98-107) mmol/L Carbon Dioxide 30.3 (21.0-32.0) mmol/L BUN 20 H (7-18) mg/dL Creatinine 1.26 H (0.51-1.17) mg/dL Est Cr Clr Drug Dosing 49.76 mL/min Estimated GFR (MDRD) 56 mL/min Glucose 100 (74-106) mg/dL Hemoglobin A1c 5.9 H (4.3-5.7) % Calcium 9.2 (8.5-10.1) mg/dL Total Bilirubin 0.5 (0.2-1.0) mg/dL AST 14 L (15-37) U/L ALT 17 (12-78) U/L Alkaline Phosphatase 103 (46-116) IU/L Creatine Kinase 36 (26-308) U/L Creatine Kinase Index 0.6 (0.0-2.5) % CK-MB (CK-2) 0.20 (0.00-3.60) ng/mL Troponin I 0.000 (0.000-0.056) ng/mL NT-Pro-B Natriuret Pep 101 (0-125) pg/mL Total Protein 7.0 (6.4-8.2) g/dL Albumin 3.8 (3.4-5.0) g/dL Triglycerides 146 (30-150) mg/dL Cholesterol 161 (100-200) mg/dL LDL Cholesterol, Calc 75 (0-100) mg/dL HDL Cholesterol 57 (40-60) mg/dL Free T4 1.23 (0.76-1.46) ng/dL Laboratory Tests 08/21/17 08/21/17 08/21/17 Range/Units 14:35 14:35 14:35 WBC 8.2 (4.0-10.2) K/uL RBC 4.26 L (4.33-5.41) M/uL Hgb 13.7 D (13.1-16.8) g/dL Hct 40.0 (39.0-49.0) % MCV 93.9 (84.0-98.0) fL MCH 32.2 (28.2-33.3) pg MCHC 34.3 (31.7-36.0) g/dL RDW 13.4 (11.2-14.1) % Plt Count 209 D (150-350) K/uL Neut % (Auto) 76.8 (45.0-80.0) % Lymph % (Auto) 13.3 (10.0-50.0) % Cook % (Auto) 8.9 (2.0-14.0) % Eos % (Auto) 0.6 (0.0-5.0) % Baso % (Auto) 0.4 (0.0-2.0) % Neut # (Auto) 6.33 (1.40-7.00) K/uL Lymph # (Auto) 1.10 (0.50-3.50) K/uL Cook # (Auto) 0.73 (0.00-1.00) K/uL Eos # (Auto) 0.05 (0.00-0.50) K/uL Baso # (Auto) 0.03 (0.00-0.20) K/uL PT 10.4 (9.8-11.7) SEC INR 1.0 APTT 25.6 (23.5-30.0) SEC D-Dimer, Quantitative 644 H (0-400) ng/mL Sodium (136-145) mmol/L Potassium (3.5-5.1) mmol/L Chloride (98-107) mmol/L Carbon Dioxide (21.0-32.0) mmol/L BUN (7-18) mg/dL Creatinine (0.51-1.17) mg/dL Est Cr Clr Drug Dosing mL/min Estimated GFR (MDRD) mL/min Glucose (74-106) mg/dL Hemoglobin A1c (4.3-5.7) % Lactic Acid (0.4-2.0) mmol/L Uric Acid (2.6-7.2) mg/dL Calcium (8.5-10.1) mg/dL Magnesium (1.8-2.4) mg/dL Total Bilirubin (0.2-1.0) mg/dL AST (15-37) U/L ALT (12-78) U/L Alkaline Phosphatase (46-116) IU/L Creatine Kinase (26-308) U/L Creatine Kinase Index (0.0-2.5) % CK-MB (CK-2) (0.00-3.60) ng/mL Troponin I (0.000-0.056) ng/mL NT-Pro-B Natriuret Pep (0-125) pg/mL Total Protein (6.4-8.2) g/dL Albumin (3.4-5.0) g/dL Triglycerides (30-150) mg/dL Cholesterol (100-200) mg/dL LDL Cholesterol, Calc (0-100) mg/dL HDL Cholesterol (40-60) mg/dL Free T4 (0.76-1.46) ng/dL TSH, Ultra Sensitive (0.358-3.740) mIU/mL Ethyl Alcohol (0.000-0.080) g/dL 08/21/17 08/21/17 08/21/17 Range/Units 14:35 14:35 14:35 WBC (4.0-10.2) K/uL RBC (4.33-5.41) M/uL Hgb (13.1-16.8) g/dL Hct (39.0-49.0) % MCV (84.0-98.0) fL MCH (28.2-33.3) pg MCHC (31.7-36.0) g/dL RDW (11.2-14.1) % Plt Count (150-350) K/uL Neut % (Auto) (45.0-80.0) % Lymph % (Auto) (10.0-50.0) % Cook % (Auto) (2.0-14.0) % Eos % (Auto) (0.0-5.0) % Baso % (Auto) (0.0-2.0) % Neut # (Auto) (1.40-7.00) K/uL Lymph # (Auto) (0.50-3.50) K/uL Cook # (Auto) (0.00-1.00) K/uL Eos # (Auto) (0.00-0.50) K/uL Baso # (Auto) (0.00-0.20) K/uL PT (9.8-11.7) SEC INR APTT (23.5-30.0) SEC D-Dimer, Quantitative (0-400) ng/mL Sodium 142 (136-145) mmol/L Potassium 3.9 (3.5-5.1) mmol/L Chloride 107 (98-107) mmol/L Carbon Dioxide 26.2 (21.0-32.0) mmol/L BUN 16 (7-18) mg/dL Creatinine 1.04 (0.51-1.17) mg/dL Est Cr Clr Drug Dosing 60.29 mL/min Estimated GFR (MDRD) > 60 mL/min Glucose 138 H (74-106) mg/dL Hemoglobin A1c (4.3-5.7) % Lactic Acid 1.9 (0.4-2.0) mmol/L Uric Acid 5.2 (2.6-7.2) mg/dL Calcium 9.0 (8.5-10.1) mg/dL Magnesium 2.0 (1.8-2.4) mg/dL Total Bilirubin 0.4 (0.2-1.0) mg/dL AST 13 L (15-37) U/L ALT 17 (12-78) U/L Alkaline Phosphatase 100 (46-116) IU/L Creatine Kinase 37 (26-308) U/L Creatine Kinase Index 0.8 (0.0-2.5) % CK-MB (CK-2) 0.30 (0.00-3.60) ng/mL Troponin I 0.000 (0.000-0.056) ng/mL NT-Pro-B Natriuret Pep 180 H (0-125) pg/mL Total Protein 6.9 (6.4-8.2) g/dL Albumin 3.7 (3.4-5.0) g/dL Triglycerides (30-150) mg/dL Cholesterol (100-200) mg/dL LDL Cholesterol, Calc (0-100) mg/dL HDL Cholesterol (40-60) mg/dL Free T4 (0.76-1.46) ng/dL TSH, Ultra Sensitive 0.007 L (0.358-3.740) mIU/mL Ethyl Alcohol 0.000 (0.000-0.080) g/dL 08/21/17 08/22/17 08/22/17 Range/Units 21:00 06:55 06:55 WBC 7.4 (4.0-10.2) K/uL RBC 4.37 (4.33-5.41) M/uL Hgb 14.0 (13.1-16.8) g/dL Hct 41.2 (39.0-49.0) % MCV 94.3 (84.0-98.0) fL MCH 32.0 (28.2-33.3) pg MCHC 34.0 (31.7-36.0) g/dL RDW 13.5 (11.2-14.1) % Plt Count 218 (150-350) K/uL Neut % (Auto) 62.7 (45.0-80.0) % Lymph % (Auto) 22.4 (10.0-50.0) % Cook % (Auto) 12.2 (2.0-14.0) % Eos % (Auto) 2.2 (0.0-5.0) % Baso % (Auto) 0.5 (0.0-2.0) % Neut # (Auto) 4.63 (1.40-7.00) K/uL Lymph # (Auto) 1.65 (0.50-3.50) K/uL Cook # (Auto) 0.90 (0.00-1.00) K/uL Eos # (Auto) 0.16 (0.00-0.50) K/uL Baso # (Auto) 0.04 (0.00-0.20) K/uL PT (9.8-11.7) SEC INR APTT (23.5-30.0) SEC D-Dimer, Quantitative 436 H (0-400) ng/mL Sodium (136-145) mmol/L Potassium (3.5-5.1) mmol/L Chloride (98-107) mmol/L Carbon Dioxide (21.0-32.0) mmol/L BUN (7-18) mg/dL Creatinine (0.51-1.17) mg/dL Est Cr Clr Drug Dosing mL/min Estimated GFR (MDRD) mL/min Glucose (74-106) mg/dL Hemoglobin A1c (4.3-5.7) % Lactic Acid (0.4-2.0) mmol/L Uric Acid (2.6-7.2) mg/dL Calcium (8.5-10.1) mg/dL Magnesium (1.8-2.4) mg/dL Total Bilirubin (0.2-1.0) mg/dL AST (15-37) U/L ALT (12-78) U/L Alkaline Phosphatase (46-116) IU/L Creatine Kinase 40 (26-308) U/L Creatine Kinase Index 0.8 (0.0-2.5) % CK-MB (CK-2) 0.30 (0.00-3.60) ng/mL Troponin I 0.000 (0.000-0.056) ng/mL NT-Pro-B Natriuret Pep (0-125) pg/mL Total Protein (6.4-8.2) g/dL Albumin (3.4-5.0) g/dL Triglycerides (30-150) mg/dL Cholesterol (100-200) mg/dL LDL Cholesterol, Calc (0-100) mg/dL HDL Cholesterol (40-60) mg/dL Free T4 (0.76-1.46) ng/dL TSH, Ultra Sensitive (0.358-3.740) mIU/mL Ethyl Alcohol (0.000-0.080) g/dL 08/22/17 08/22/17 Range/Units 06:55 06:55 WBC (4.0-10.2) K/uL RBC (4.33-5.41) M/uL Hgb (13.1-16.8) g/dL Hct (39.0-49.0) % MCV (84.0-98.0) fL MCH (28.2-33.3) pg MCHC (31.7-36.0) g/dL RDW (11.2-14.1) % Plt Count (150-350) K/uL Neut % (Auto) (45.0-80.0) % Lymph % (Auto) (10.0-50.0) % Cook % (Auto) (2.0-14.0) % Eos % (Auto) (0.0-5.0) % Baso % (Auto) (0.0-2.0) % Neut # (Auto) (1.40-7.00) K/uL Lymph # (Auto) (0.50-3.50) K/uL Cook # (Auto) (0.00-1.00) K/uL Eos # (Auto) (0.00-0.50) K/uL Baso # (Auto) (0.00-0.20) K/uL PT (9.8-11.7) SEC INR APTT (23.5-30.0) SEC D-Dimer, Quantitative (0-400) ng/mL Sodium 143 (136-145) mmol/L Potassium 3.9 (3.5-5.1) mmol/L Chloride 106 (98-107) mmol/L Carbon Dioxide 30.3 (21.0-32.0) mmol/L BUN 20 H (7-18) mg/dL Creatinine 1.26 H (0.51-1.17) mg/dL Est Cr Clr Drug Dosing 49.76 mL/min Estimated GFR (MDRD) 56 mL/min Glucose 100 (74-106) mg/dL Hemoglobin A1c 5.9 H (4.3-5.7) % Lactic Acid (0.4-2.0) mmol/L Uric Acid (2.6-7.2) mg/dL Calcium 9.2 (8.5-10.1) mg/dL Magnesium (1.8-2.4) mg/dL Total Bilirubin 0.5 (0.2-1.0) mg/dL AST 14 L (15-37) U/L ALT 17 (12-78) U/L Alkaline Phosphatase 103 (46-116) IU/L Creatine Kinase 36 (26-308) U/L Creatine Kinase Index 0.6 (0.0-2.5) % CK-MB (CK-2) 0.20 (0.00-3.60) ng/mL Troponin I 0.000 (0.000-0.056) ng/mL NT-Pro-B Natriuret Pep 101 (0-125) pg/mL Total Protein 7.0 (6.4-8.2) g/dL Albumin 3.8 (3.4-5.0) g/dL Triglycerides 146 (30-150) mg/dL Cholesterol 161 (100-200) mg/dL LDL Cholesterol, Calc 75 (0-100) mg/dL HDL Cholesterol 57 (40-60) mg/dL Free T4 1.23 (0.76-1.46) ng/dL TSH, Ultra Sensitive (0.358-3.740) mIU/mL Ethyl Alcohol (0.000-0.080) g/dL [place] Results Last 24 Hours: None Med Orders - Current: Current Medications Acetaminophen (Tylenol) 650 mg PO Q4H PRN PRN Reason: Pain Atorvastatin Calcium (Lipitor) 10 mg PO BEDTIME [facility] Last Admin: 08/21/17 19:21 Dose: 10 mg Cholecalciferol (Vitamin D3) 4,000 units PO BID [facility] Last Admin: 08/22/17 07:58 Dose: 4,000 units Desmopressin Acetate (Desmopressin) 0.1 mg PO BID [facility] Last Admin: 08/22/17 07:58 Dose: 0.1 mg Enoxaparin Sodium (Lovenox) 70 mg SUBCUT Q24H [facility] Last Admin: 08/21/17 15:55 Dose: 70 mg Famotidine (Pepcid) 20 mg PO DAILY [facility] Last Admin: 08/22/17 07:58 Dose: 20 mg Finasteride (Proscar) 5 mg PO DAILY [facility] Last Admin: 08/22/17 07:58 Dose: 5 mg Furosemide (Lasix) 40 mg IVPUSH Q12H [facility] Last Admin: 08/22/17 06:01 Dose: 40 mg Hydrocortisone (Cortef) 10 mg PO BID [facility] Last Admin: 08/22/17 07:58 Dose: 10 mg Levothyroxine Sodium (Synthroid) 125 mcg PO ACBREAKFAST [facility] Last Admin: 08/22/17 08:00 Dose: 125 mcg Non-Formulary Medication (Testosterone Cypionate [Depo-Testosterone]) 0.5 ml IM Q14D [facility] Paroxetine HCl (Paxil) 50 mg PO BEDTIME [facility] Last Admin: 08/21/17 19:21 Dose: 50 mg Potassium Chloride (Klor-Con M20) 20 meq PO TID [facility] Last Admin: 08/22/17 07:58 Dose: 20 meq Senna/Docusate Sodium (Senna Plus) 1 tab PO DAILY [facility] Last Admin: 08/22/17 07:58 Dose: 1 tab Sodium Chloride (Saline Flush) 10 ml FLUSH ASDIRECTED PRN PRN Reason: Keep Vein Open Last Admin: 08/22/17 06:01 Dose: 10 ml Sodium Chloride (Saline Flush) 10 ml FLUSH Q12HR PRN PRN Reason: Keep Vein Open Tamsulosin HCl (Flomax) 0.4 mg PO BEDTIME [facility] Last Admin: 08/21/17 19:21 Dose: 0.4 mg Terbinafine HCl (Lamisil) 250 mg PO DAILY [facility] Trazodone HCl (Trazodone) 25 mg PO BEDTIME [facility] Last Admin: 08/21/17 19:21 Dose: 25 mg Trospium (Sanctura) 20 mg PO BID [facility] Last Admin: 08/22/17 07:58 Dose: 20 mg Discontinued Medications Aspirin (Aspirin) 324 mg CHEW ONETIME ONE Stop: 08/21/17 14:25 Last Admin: 08/21/17 14:38 Dose: 324 mg Famotidine (Pepcid) 40 mg IVPUSH ONETIME ONE Stop: 08/21/17 14:25 Last Admin: 08/21/17 14:36 Dose: 40 mg Iopamidol (Isovue-370 (76%)) 100 ml IVPUSH ONETIME ONE Stop: 08/21/17 17:01 Last Admin: 08/21/17 17:21 Dose: Not Given Temazepam (Restoril) 15 mg PO BEDTIME PRN PRN Reason: Insomnia Ticagrelor (Brilinta) 180 mg PO ONETIME ONE Stop: 08/21/17 14:25 Last Admin: 08/21/17 14:38 Dose: 180 mg - Exam Quality Assessment: Supplemental Oxygen, DVT Prophylaxis. No: Urine Catheter, Skin Breakdown, Restraints General: Alert, Oriented, Cooperative HEENT: Pupils Equal, Pupils Reactive, EOMI, Mucous Membr. Moist/[employer] Neck: Supple, Trachea Midline, No JVD, No Thyromegaly. No: Lymphadenopathy Lungs: Clear to Auscultation, Normal Respiratory Effort Cardiovascular: Regular Rate, Regular Rhythm, No Murmurs. No: Gallops, Rubs GI/Abdominal Exam: Normal Bowel Sounds, Soft, Non-Tender, No Organomegaly, No Distention, No Abnormal Bruit, No Mass, Pelvis Stable. No: Guarding (Male) Exam: Deferred Back Exam: Normal Inspection, Full Range of Motion. No: CVA Tenderness (L), CVA Tenderness (R), Muscle Spasm Extremities: Normal Inspection, Normal Range of Motion, Non-Tender, No Pedal Edema, Normal Capillary Refill. No: Melvi's Sign Peripheral Pulses: 2+: Radial (L), Radial (R), Dorsalis Pedis (L), Dorsalis Pedis (R) Skin: Warm, Dry, Intact. No: Ecchymosis Neurological: No New Focal Deficit, Other (Stable mild baseline confusion) Psy/Mental Status: Alert, Normal Affect, Normal Mood. No: Anxious, Depressed, Agitated, Suicidal Ideation, Hallucinations, Withdrawal Symptoms EKG INTERPRETATION EKG Date: 08/22/17 Time: 07:47 Rhythm: NSR Rate (Beats/Min): 69 [place]: Normal (Neutral cardiac axis which is changed from previous left cardiac axis) P-Wave: Enlarged (Mild diffuse biphasic P waves with new pulmonary hypertension by EKG) QRS: Normal (QRS interval of 0.09 seconds representing repolarization changes) ST-T: Normal QT: Normal IN/PQ Interval: 0.17 seconds Comparison: Change From Previous EKG (As above since 08/21/17) EKG Interpretation Comments: No acute ischemic changes - Problem List & Annotations (1) Chest pain SNOMED Code(s): 16814913 Code(s): R07.9 - CHEST PAIN, UNSPECIFIED Status: Acute Priority: High Current Visit: Yes Onset Date: ~08/20/17 Qualifiers: Chest pain type: chest pain due to myocardial ischemia Ischemic chest pain type: stable angina pectoris Qualified Code(s): I20.8 - Other forms of angina pectoris Annotation/Comment:: Negative workup for acute PR. He continues to be chest pain -free. Continue an additional day of hospitalization secondary to his mild CHF with repeat EKG, chest x-ray, and blood work in the a.m.. Hussein Lay M.D. , at the [facility], assumes care in the a.m. with probable hospital discharge in the next 12 days. Note that Chest pain protocol was initiated immediately on patient's arrival to the emergency room. No beta leeanna therapy was given. He was chest pain free shortly upon arrival to our facility with no chest pain or other anginal complaints prior to admission. Further cardiology consultation depending on his clinical course. Probable Cardiolite stress test on an outpatient basis (2) CHF (congestive heart failure) SNOMED Code(s): 77457631 Code(s): I50.9 - HEART FAILURE, UNSPECIFIED Status: Acute Priority: High Current Visit: Yes Onset Date: 08/21/17 Qualifiers: Congestive heart failure type: unspecified congestive heart failure type Congestive heart failure chronicity: acute Qualified Code(s): I50.9 - Heart failure, unspecified Annotation/Comment:: Only mild BNP elevation on admissio, although moderate centralized CHF by chest x-ray. Low-dose diuretic therapy initiated on admission. Initiate additional ALYSE inhibitor therapy today with caution secondary to his renal insufficiency and borderline low blood pressures. Consider echocardiogram and an outpatient basis (3) D-dimer, elevated SNOMED Code(s): 199950061 Code(s): R79.89 - OTHER SPECIFIED ABNORMAL FINDINGS OF BLOOD CHEMISTRY Status: Acute Priority: High Current Visit: Yes Onset Date: 08/21/17 Annotation/Comment:: No clinical evidence of DVT or PE. CTA of the chest was negative for PE yesterday. Initial subcutaneous Lovenox was initiated in the emergency room with continuation of this therapy until venous Doppler study can be completed later today. 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 Free T4 normal today with free T3 results still pending (5) Hypoalbuminemia SNOMED Code(s): 210933628 Code(s): E88.09 - OTH DISORDERS OF PLASMA-PROTEIN METABOLISM, NEC Status: Acute Priority: Medium Current Visit: No Onset Date: 01/01/17 Annotation /Comment:: Previous hypoalbuminemia resolved at this time with patient recently noncompliant with his high-protein Glucerna supplements recently. This should be continued on a regular basis with the patient and his family counseled on the importance of compliance with this therapy (6) Hyperlipidemia SNOMED Code(s): 77557062 Code(s): E78.5 - HYPERLIPIDEMIA, UNSPECIFIED Status: Chronic Priority: Medium Current Visit: Yes Qualifiers: Hyperlipidemia type: unspecified Qualified Code(s): E78.5 - Hyperlipidemia , unspecified Annotation/Comment:: Currently under therapy with lipid panel normal this morning. Only mildly elevated glycosylated hemoglobin today and observe for now (7) Panhypopituitarism SNOMED Code(s): 07360663 Code(s): E23.0 - HYPOPITUITARISM Status: Chronic Priority: High Current Visit: Yes Annotation/Comment:: Nonsymptomatic at this time. Continue to observe closely (8) Osteoarthritis SNOMED Code(s): 688604173 Code(s): M19.90 - UNSPECIFIED OSTEOARTHRITIS, UNSPECIFIED SITE Status: Chronic Priority: Medium Current Visit: Yes Qualifiers: Osteoarthritis location: multiple joints Osteoarthritis type: primary Qualified Code(s): M15.0 - Primary generalized (osteo)arthritis Annotation/Comment:: Stable by history (9) Peptic reflux disease SNOMED Code(s): 63729167 Code(s): K21.9 - GASTRO-ESOPHAGEAL REFLUX DISEASE WITHOUT ESOPHAGITIS Status: Chronic Priority: Medium Current Visit: Yes Annotation/Comment:: Stable by history with high-dose IV Pepcid given in the emergency room as GI prophylaxis (10) Mixed anxiety depressive disorder SNOMED Code(s): 246559911 Code(s): F41.8 - OTHER SPECIFIED ANXIETY DISORDERS Status: Chronic Priority: Medium Current Visit: Yes Annotation/Comment:: Stable by history despite mild occasional confusion as above (11) Dementia SNOMED Code(s): 63811234 Code(s): F03.90 - UNSPECIFIED DEMENTIA WITHOUT BEHAVIORAL DISTURBANCE Status: Chronic Priority: High Current Visit: No Qualifiers: Dementia type: unspecified type Dementia behavioral disturbance: without behavioral disturbance Qualified Code(s): F03.90 - Unspecified dementia without behavioral disturbance Annotation/Comment:: Some 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 Note previous history of pituitary adenoma and brain surgery with current muñoz- hypopituitarism, which is watched closely by his cna [facility] in [place]. (12) Iron deficiency anemia SNOMED Code(s): 26840339 Code(s): D50.9 - IRON DEFICIENCY ANEMIA, UNSPECIFIED Status: Chronic Priority: Medium Current Visit: Yes Qualifiers: Iron deficiency anemia type: unspecified iron deficiency Qualified Code(s) : D50.9 - Iron deficiency anemia, unspecified Annotation/Comment:: History of iron deficiency anemia with no anemia at this time, however no previous workup after significant anemia in December 2016 as above. (13) Alcoholism in remission Status: Chronic Priority: Medium Current Visit: Yes Annotation/Comment:: In remission. Normal alcohol level (14) Renal insufficiency SNOMED Code(s): 565204269 Code(s): N28.9 - DISORDER OF KIDNEY AND URETER, UNSPECIFIED Status: Acute Priority: Medium Current Visit: Yes Onset Date: 08/22/17 Annotation/ Comment:: Newly diagnosed. Observe closely as above (15) PVCs (premature ventricular contractions) SNOMED Code(s): 07510283 Code(s): I49.3 - VENTRICULAR PREMATURE DEPOLARIZATION Status: Acute Priority: Medium Current Visit: Yes Onset Date: 08/22/17 Annotation/ Comment:: Newly diagnosed. Nonsymptomatic. Continue telemetry - Problem List Review Problem List Initiated/Reviewed/Updated: Yes - My Orders Last 24 Hours: My Active Orders 08/21/17 16:15 Communication Order [RC] ROUTINE Height and Weight [RC] 0600 Intake and Output Strict [RC] QSHIFT Oxygen Therapy [RC] CONTINUOUS Pulse Oximetry [RC] ASDIRECTED Up With Assistance [RC] ASDIRECTED H PYLORI STOOL ANTIGEN [MREF] OCCULT BLOOD DIAGNOSTIC [OP] Stat Acetaminophen [Tylenol] 650 mg PO Q4H PRN Sodium Chloride 0.9% [Saline Flush] 10 ml FLUSH Q12HR PRN Antiembolic Hose [OM.PC] Routine CHF Questionnaire [COMM] Routine DVT/VTE Prophylaxis Reflex [OM.PC] Routine GM Immunization Reflex [OM.PC] Click To Edit 08/21/17 16:16 Antiembolic Devices [RC] 08,20 VTE/DVT Education [RC] .PRN 08/21/17 16:23 Chest PE [Ang Chest] [CT] Stat 08/21/17 16:25 Communication Order [RC] ROUTINE 08/21/17 16:29 Communication Order [RC] ROUTINE 08/21/17 16:30 Testosterone Cypionate [Depo-Testosterone] 0.5 ml IM Q14D 08/21/17 17:00 Furosemide [Lasix] 40 mg IVPUSH Q12H 08/21/17 18:00 Cholecalciferol (Vitamin D3) [Vitamin D3] 4,000 units PO BID Desmopressin 0.1 mg PO BID Hydrocortisone [Cortef] 10 mg PO BID Potassium Chloride [Klor-Con M20] 20 meq PO TID Trospium [Sanctura] 20 mg PO BID 08/21/17 20:00 PARoxetine [Paxil] 50 mg PO BEDTIME Tamsulosin [Flomax] 0.4 mg PO BEDTIME atorvaSTATin [Lipitor] 10 mg PO BEDTIME traZODone 25 mg PO BEDTIME 08/21/17 22:28 Vital Signs [RC] Q4HR 08/21/17 Dinner Fluid Restriction [DIET] 08/22/17 05:11 Venous Doppler Lwr Ext Bi [US] Urgent 08/22/17 06:55 FREE T3 [REF] Routine 08/22/17 07:30 Levothyroxine [Synthroid] 125 mcg PO ACBREAKFAST 08/22/17 08:00 Docusate Sodium/Sennosides [Senna Plus] 1 tab PO DAILY Famotidine [Pepcid] 20 mg PO DAILY Finasteride [Proscar] 5 mg PO DAILY Terbinafine [LamISIL] 250 mg PO DAILY 08/22/17 16:15 H PYLORI STOOL ANTIGEN [MREF] - Assessment Assessment:: As above - Plan Plan:: As above. Extensive precautions were given to the patient, who is in agreement with the treatment plan.
[2017-08-22] MEDS: Terbinafine 250 MG Tab PO SCH (08:49)
[2017-08-22] MEDS: Lisinopril 10 MG Tab PO SCH (10:37)
[2017-08-22] MEDS: Enoxaparin 30 MG/0.3 ML Syringe SUBCUT SCH (16:56)
[2017-08-22] MEDS: PARoxetine 20 MG Tab PO SCH (19:54)
[2017-08-22] MEDS: traZODone 50 MG Tab PO SCH (19:54)
[2017-08-22] MEDS: Tamsulosin 0.4 MG Cap.ER PO SCH (19:54)
[2017-08-22] MEDS: atorvaSTATin 10 MG Tab PO SCH (19:55)
[2017-08-23] MEDS: Furosemide 40 MG/4 ML VIAL IVPUSH SCH (05:37)
[2017-08-23] MEDS: Sodium Chloride 0.9% 10 ML Syringe FLUSH PRN (05:39)
[2017-08-23] MEDS: Lisinopril 10 MG Tab PO SCH (08:07)
[2017-08-23] MEDS: Potassium Chloride 20 MEQ Tab.ER PO SCH ×2 (08:08→17:49)
[2017-08-23] MEDS: Levothyroxine 50 MCG Tab PO SCH (08:08)
[2017-08-23] MEDS: Famotidine 20 MG Tab PO SCH (08:09)
[2017-08-23] MEDS: Cholecalciferol (Vitamin D3) 1,000 Unit Tab PO SCH ×2 (08:11→17:52)
[2017-08-23] MEDS: Trospium 20 MG Tab PO SCH ×2 (08:11→17:52)
[2017-08-23] MEDS: Finasteride 5 MG Tab PO SCH (08:12)
[2017-08-23] MEDS: Terbinafine 250 MG Tab PO SCH (10:37)
--- NOTE | 2017-08-23 12:35 | PCM.PN ---
- General Info Date of Service: 08/23/17 Admission Dx/Problem (Free Text): Patient is a 72-year-old who presents with chief complaint of heartburn for 3 or 4 days was diagnosed with CHF patient has history of muñoz hypo-pituitariesm today patient seen concern about his BUN/creatinine and creatinine going up probably secondary to medications - Review of Systems General: Reports: No Symptoms HEENT: Reports: No Symptoms Pulmonary: Reports: No Symptoms Cardiovascular: Reports: No Symptoms (No chest pain today) Gastrointestinal: Reports: No Symptoms Genitourinary: Reports: No Symptoms Musculoskeletal: Reports: No Symptoms Skin: Reports: No Symptoms Neurological: Reports: No Symptoms Psychiatric: Reports: No Symptoms - Patient Data Vitals - Most Recent: Last Vital Signs Temp 98.0 F 08/23/17 07:50 Pulse 91 08/23/17 07:50 Resp 18 08/23/17 07:50 BP 101/59 L 08/23/17 08:07 Pulse Ox 96 08/23/17 07:50 Weight - Most Recent: 152 lb 8.006 oz I&O - Last 24 Hours: Intake & Output 08/22/17 08/23/17 08/23/17 22:59 06:59 14:59 Intake Total 440 350 Output Total 1100 200 Balance -660 150 Lab Results Last 24 Hours: Laboratory Results - last 24 hr 08/23/17 08/23/17 08/23/17 Range/Units 06:50 06:50 06:50 WBC 7.4 (4.0-10.2) K/uL RBC 4.25 L (4.33-5.41) M/uL Hgb 13.7 (13.1-16.8) g/dL Hct 40.2 (39.0-49.0) % MCV 94.6 (84.0-98.0) fL MCH 32.2 (28.2-33.3) pg MCHC 34.1 (31.7-36.0) g/dL RDW 13.6 (11.2-14.1) % Plt Count 232 (150-350) K/uL Neut % (Auto) 61.4 (45.0-80.0) % Lymph % (Auto) 22.2 (10.0-50.0) % [place] % (Auto) 13.3 (2.0-14.0) % Eos % (Auto) 2.4 (0.0-5.0) % Baso % (Auto) 0.7 (0.0-2.0) % Neut # (Auto) 4.55 (1.40-7.00) K/uL Lymph # (Auto) 1.65 (0.50-3.50) K/uL [place] # (Auto) 0.99 (0.00-1.00) K/uL Eos # (Auto) 0.18 (0.00-0.50) K/uL Baso # (Auto) 0.05 (0.00-0.20) K/uL D-Dimer, Quantitative 209 (0-400) ng/mL Sodium 144 (136-145) mmol/L Potassium 4.1 (3.5-5.1) mmol/L Chloride 106 (98-107) mmol/L Carbon Dioxide 29.7 (21.0-32.0) mmol/L BUN 41 H (7-18) mg/dL Creatinine 2.24 H (0.51-1.17) mg/dL Est Cr Clr Drug Dosing 27.99 mL/min Estimated GFR (MDRD) 29 mL/min Glucose 103 (74-106) mg/dL Uric Acid 7.8 H (2.6-7.2) mg/dL Calcium 8.9 (8.5-10.1) mg/dL Magnesium 2.2 (1.8-2.4) mg/dL Total Bilirubin 0.3 (0.2-1.0) mg/dL AST 11 L (15-37) U/L ALT 16 (12-78) U/L Alkaline Phosphatase 94 (46-116) IU/L Creatine Kinase 56 (26-308) U/L Creatine Kinase Index 0.4 (0.0-2.5) % CK-MB (CK-2) 0.20 (0.00-3.60) ng/mL Troponin I 0.000 (0.000-0.056) ng/mL NT-Pro-B Natriuret Pep 54 (0-125) pg/mL Total Protein 6.9 (6.4-8.2) g/dL Albumin 3.7 (3.4-5.0) g/dL Med Orders - Current: Current Medications Acetaminophen (Tylenol) 650 mg PO Q4H PRN PRN Reason: Pain Atorvastatin Calcium (Lipitor) 10 mg PO BEDTIME [facility] Last Admin: 08/22/17 19:55 Dose: 10 mg Cholecalciferol (Vitamin D3) 4,000 units PO BID [facility] Last Admin: 08/23/17 08:11 Dose: 4,000 units Desmopressin Acetate (Desmopressin) 0.1 mg PO BID [facility] Last Admin: 08/23/17 08:08 Dose: 0.1 mg Enoxaparin Sodium (Lovenox) 30 mg SUBCUT Q24H [facility] Last Admin: 08/22/17 16:56 Dose: 30 mg Famotidine (Pepcid) 20 mg PO DAILY [facility] Last Admin: 08/23/17 08:09 Dose: 20 mg Finasteride (Proscar) 5 mg PO DAILY [facility] Last Admin: 08/23/17 08:12 Dose: 5 mg Hydrocortisone (Cortef) 10 mg PO BID [facility] Last Admin: 08/23/17 08:12 Dose: 10 mg Levothyroxine Sodium (Synthroid) 125 mcg PO ACBREAKFAST [facility] Last Admin: 08/23/17 08:08 Dose: 125 mcg Lisinopril (Prinivil) 10 mg PO DAILY [facility] Last Admin: 08/23/17 08:07 Dose: 10 mg Non-Formulary Medication (Testosterone Cypionate [Depo-Testosterone]) 0.5 ml IM Q14D [facility] Paroxetine HCl (Paxil) 50 mg PO BEDTIME [facility] Last Admin: 08/22/17 19:54 Dose: 50 mg Potassium Chloride (Klor-Con M20) 20 meq PO BID [facility] Last Admin: 08/23/17 08:08 Dose: 20 meq Senna/Docusate Sodium (Senna Plus) 1 tab PO DAILY [facility] Last Admin: 08/23/17 08:12 Dose: 1 tab Sodium Chloride (Saline Flush) 10 ml FLUSH ASDIRECTED PRN PRN Reason: Keep Vein Open Last Admin: 08/23/17 05:39 Dose: 10 ml Sodium Chloride (Saline Flush) 10 ml FLUSH Q12HR PRN PRN Reason: Keep Vein Open Last Admin: 08/22/17 19:56 Dose: 10 ml Tamsulosin HCl (Flomax) 0.4 mg PO BEDTIME [facility] Last Admin: 08/22/17 19:54 Dose: 0.4 mg Terbinafine HCl (Lamisil) 250 mg PO DAILY [facility] Last Admin: 08/23/17 10:37 Dose: 250 mg Trazodone HCl (Trazodone) 25 mg PO BEDTIME [facility] Last Admin: 08/22/17 19:54 Dose: 25 mg Trospium (Sanctura) 20 mg PO BID [facility] Last Admin: 08/23/17 08:11 Dose: 20 mg Discontinued Medications Aspirin (Aspirin) 324 mg CHEW ONETIME ONE Stop: 08/21/17 14:25 Last Admin: 08/21/17 14:38 Dose: 324 mg Enoxaparin Sodium (Lovenox) 70 mg SUBCUT Q24H [facility] Last Admin: 08/21/17 15:55 Dose: 70 mg Famotidine (Pepcid) 40 mg IVPUSH ONETIME ONE Stop: 08/21/17 14:25 Last Admin: 08/21/17 14:36 Dose: 40 mg Furosemide (Lasix) 40 mg IVPUSH Q12H [facility] Last Admin: 08/22/17 06:01 Dose: 40 mg Furosemide (Lasix) 20 mg IVPUSH Q12H [facility] Last Admin: 08/23/17 05:37 Dose: 20 mg Iopamidol (Isovue-370 (76%)) 100 ml IVPUSH ONETIME ONE Stop: 08/21/17 17:01 Last Admin: 08/21/17 17:21 Dose: Not Given Potassium Chloride (Klor-Con M20) 20 meq PO TID [facility] Last Admin: 08/22/17 07:58 Dose: 20 meq Temazepam (Restoril) 15 mg PO BEDTIME PRN PRN Reason: Insomnia Ticagrelor (Brilinta) 180 mg PO ONETIME ONE Stop: 08/21/17 14:25 Last Admin: 08/21/17 14:38 Dose: 180 mg - Exam General: Alert, Oriented HEENT: Pupils Equal, Pupils Reactive, EOMI, Mucous Membr. Moist/[place] Neck: Supple Lungs: Clear to Auscultation, Normal Respiratory Effort Cardiovascular: Regular Rate, Regular Rhythm GI/Abdominal Exam: Normal Bowel Sounds, Soft, Non-Tender, No Organomegaly, No Distention, No Abnormal Bruit, No Mass, Pelvis Stable (Male) Exam: No Hernia, Normal Inspection, Normal Prostate, Circumcised Back Exam: Normal Inspection, Full Range of Motion Extremities: Normal Inspection, Normal Range of Motion, Non-Tender, No Pedal Edema, Normal Capillary Refill Skin: Warm, Dry, Intact Wound/Incisions: Healing Well Neurological: No New Focal Deficit Psy/Mental Status: Alert, Normal Affect, Normal Mood - Problem List & Annotations (1) Acute renal failure SNOMED Code(s): 00991599 Code(s): N17.9 - ACUTE KIDNEY FAILURE, UNSPECIFIED Status: Acute Current Visit: Yes Qualifiers: Acute renal failure type: unspecified Qualified Code(s): N17.9 - Acute kidney failure, unspecified Annotation/Comment:: At this time his creatinine is up to 2.24 and concern of acute renal failure iatrogenic possibly secondary to Lasix will hold Lasix recheck BMP in the morning if improving will discharge home - Problem List Review Problem List Initiated/Reviewed/Updated: Yes - My Orders Last 24 Hours: My Active Orders 08/24/17 05:11 CBC WITH AUTO DIFF [HEME] Routine CMP [COMPREHENSIVE METABOLIC PN,CMP] [CHEM] Routine - Assessment Assessment:: As above - Plan Plan:: As above. Extensive precautions were given to the patient, who is in agreement with the treatment plan.
[2017-08-23] MEDS: Enoxaparin 30 MG/0.3 ML Syringe SUBCUT SCH (15:32)
[2017-08-23] MEDS: PARoxetine 20 MG Tab PO SCH (19:34)
[2017-08-23] MEDS: atorvaSTATin 10 MG Tab PO SCH (19:34)
[2017-08-23] MEDS: Tamsulosin 0.4 MG Cap.ER PO SCH (19:35)
[2017-08-23] MEDS: traZODone 50 MG Tab PO SCH (19:35)
[2017-08-23] MEDS ORDERED: Aluminum Hydroxide/Magnesium Hydroxide/Simethicone Susp 30 ML Cup PO PRN (23:37)
[2017-08-24] MEDS: Levothyroxine 50 MCG Tab PO SCH (07:45)
[2017-08-24] MEDS: Cholecalciferol (Vitamin D3) 1,000 Unit Tab PO SCH (07:46)
[2017-08-24] MEDS: Lisinopril 10 MG Tab PO SCH (07:46)
[2017-08-24] MEDS: Trospium 20 MG Tab PO SCH (07:46)
[2017-08-24] MEDS: Famotidine 20 MG Tab PO SCH (07:46)
[2017-08-24] MEDS: Finasteride 5 MG Tab PO SCH (07:46)
[2017-08-24] MEDS: Potassium Chloride 20 MEQ Tab.ER PO SCH (07:46)
[2017-08-24] MEDS: Terbinafine 250 MG Tab PO SCH (07:46)
[2017-08-24 12:10] VITALS: BP 121/64
[2017-08-24] MEDS ORDERED: Sucralfate 1 GM Tab PO ONE (13:32)
--- NOTE | 2017-08-24 13:32 | PCM.DCSUM1 ---
Discharge Summary - Hospital Course Brief History: Patient is a 72-year-old who was admitted to the hospital secondary to CHF and epigastric pain rule out HI. HI was ruled out. patient doing better. we'll discharge home - Discharge Data Discharge Date: 08/24/17 Discharge Disposition: Home, Self-Care 01 Condition: Good - Discharge Diagnosis/Problem(s) (1) Acute renal failure SNOMED Code(s): 71434656 ICD Code: N17.9 - ACUTE KIDNEY FAILURE, UNSPECIFIED Status: Acute Problem Details: At this time his creatinine is up to 2.24 and concern of acute renal failure iatrogenic possibly secondary to Lasix will hold Lasix recheck BMP in the morning if improving will discharge home Qualifiers: Acute renal failure type: unspecified Qualified Code(s): N17.9 - Acute kidney failure, unspecified - Patient Instructions Diet: Heart Healthy Diet - Discharge Plan Prescriptions/Med Rec: Sucralfate [Carafate] 1 gm PO QID 30 Days #120 tablet Home Medications: Home Meds Desmopressin Acetate 0.1 mg PO BID #60 12/21/16 [Rx] Finasteride [Proscar] 5 mg PO DAILY #30 tablet 12/21/16 [Rx] Levothyroxine 125 mcg PO DAILY #0 12/21/16 [Rx] Tamsulosin [Flomax] 0.4 mg PO BEDTIME #30 cap.er 12/21/16 [Rx] atorvaSTATin [Lipitor] 10 mg PO BEDTIME #30 12/21/16 [Rx] Cholecalciferol (Vitamin D3) [Vitamin D3] 4,000 unit PO BID 12/31/16 [History] Hydrocortisone [Cortef] 10 mg PO BID 08/21/17 [History] PARoxetine [Paxil] 50 mg PO BEDTIME 08/21/17 [History] Ranitidine [Zantac] 150 mg PO DAILY 08/21/17 [History] Sennosides/Docusate Sodium [Senna S Tablet] 1 each PO DAILY 08/21/17 [History] Solifenacin [Vesicare] 5 mg PO BEDTIME 08/21/17 [History] Terbinafine [LamISIL] 250 mg PO DAILY 08/21/17 [History] Testosterone Cypionate [Depo-Testosterone] 0.5 ml IM Q14D 08/21/17 [History] traZODone HCl [Trazodone HCl] 25 mg PO BEDTIME 08/21/17 [History] Acetaminophen [Tylenol] 650 mg PO Q4H PRN tablet 08/24/17 [Rx] Famotidine [Pepcid] 20 mg PO DAILY tablet 08/24/17 [Rx] PARoxetine [Paxil] 50 mg PO BEDTIME tablet 08/24/17 [Rx] Sucralfate [Carafate] 1 gm PO QID 30 Days #120 tablet 08/24/17 [Rx] Patient Handouts: Ticagrelor oral tablet, Enoxaparin injection, Famotidine injection, Nonspecific Chest Pain, [id number], Heart Failure Forms: ED Department Discharge Referrals: Shabana Peter, [facility] [Primary Care Provider] - PCP,Unknown [Ordering Only Provider] - - Patient Data Vitals - Most Recent: Last Vital Signs Temp 97.7 F 08/24/17 12:00 Pulse 87 08/24/17 12:00 Resp 15 08/24/17 12:00 BP 121/64 08/24/17 12:00 Pulse Ox 99 08/24/17 12:00 Weight - Most Recent: 152 lb 11.2 oz I&O - Last 24 hours: Intake & Output 08/23/17 08/24/17 08/24/17 22:59 06:59 14:59 Intake Total 100 240 Output Total 250 450 600 Balance -250 -350 -360 Lab Results - Last 24 hrs: Laboratory Results - last 24 hr 08/24/17 Range/Units 07:25 WBC 6.4 (4.0-10.2) K/uL RBC 4.08 L (4.33-5.41) M/uL Hgb 13.1 (13.1-16.8) g/dL Hct 38.6 L (39.0-49.0) % MCV 94.6 (84.0-98.0) fL MCH 32.1 (28.2-33.3) pg MCHC 33.9 (31.7-36.0) g/dL RDW 13.3 (11.2-14.1) % Plt Count 213 (150-350) K/uL Neut % (Auto) 61.2 (45.0-80.0) % Lymph % (Auto) 22.0 (10.0-50.0) % [place] % (Auto) 13.1 (2.0-14.0) % Eos % (Auto) 3.1 (0.0-5.0) % Baso % (Auto) 0.6 (0.0-2.0) % Neut # (Auto) 3.88 (1.40-7.00) K/uL Lymph # (Auto) 1.40 (0.50-3.50) K/uL [place] # (Auto) 0.83 (0.00-1.00) K/uL Eos # (Auto) 0.20 (0.00-0.50) K/uL Baso # (Auto) 0.04 (0.00-0.20) K/uL ABRAHAN Results - Last 24 hrs: Microbiology 08/23/17 18:30 Stool Occult Blood (ABRAHAN) - Final Stool / Feces NEGATIVE OCCULT BLOOD Med Orders - Current: Current Medications Acetaminophen (Tylenol) 650 mg PO Q4H PRN PRN Reason: Pain Al Hydroxide/Mg Hydroxide (Mag-Al Plus) 30 ml PO ASDIRECTED PRN PRN Reason: GI upset Last Admin: 08/23/17 23:49 Dose: 30 ml Atorvastatin Calcium (Lipitor) 10 mg PO BEDTIME [facility] Last Admin: 08/23/17 19:34 Dose: 10 mg Cholecalciferol (Vitamin D3) 4,000 units PO BID [facility] Last Admin: 08/24/17 07:46 Dose: 4,000 units Desmopressin Acetate (Desmopressin) 0.1 mg PO BID [facility] Last Admin: 08/24/17 07:46 Dose: 0.1 mg Enoxaparin Sodium (Lovenox) 30 mg SUBCUT Q24H [facility] Last Admin: 08/23/17 15:32 Dose: 30 mg Famotidine (Pepcid) 20 mg PO DAILY [facility] Last Admin: 08/24/17 07:46 Dose: 20 mg Finasteride (Proscar) 5 mg PO DAILY [facility] Last Admin: 08/24/17 07:46 Dose: 5 mg Hydrocortisone (Cortef) 10 mg PO BID [facility] Last Admin: 08/24/17 07:46 Dose: 10 mg Levothyroxine Sodium (Synthroid) 125 mcg PO ACBREAKFAST [facility] Last Admin: 08/24/17 07:45 Dose: 125 mcg Lisinopril (Prinivil) 10 mg PO DAILY [facility] Last Admin: 08/24/17 07:46 Dose: 10 mg Non-Formulary Medication (Testosterone Cypionate [Depo-Testosterone]) 0.5 ml IM Q14D [facility] Paroxetine HCl (Paxil) 50 mg PO BEDTIME [facility] Last Admin: 08/23/17 19:34 Dose: 50 mg Potassium Chloride (Klor-Con M20) 20 meq PO BID [facility] Last Admin: 08/24/17 07:46 Dose: 20 meq Senna/Docusate Sodium (Senna Plus) 1 tab PO DAILY [facility] Last Admin: 08/24/17 07:46 Dose: 1 tab Sodium Chloride (Saline Flush) 10 ml FLUSH ASDIRECTED PRN PRN Reason: Keep Vein Open Last Admin: 08/23/17 05:39 Dose: 10 ml Sodium Chloride (Saline Flush) 10 ml FLUSH Q12HR PRN PRN Reason: Keep Vein Open Last Admin: 08/22/17 19:56 Dose: 10 ml Tamsulosin HCl (Flomax) 0.4 mg PO BEDTIME [facility] Last Admin: 08/23/17 19:35 Dose: 0.4 mg Terbinafine HCl (Lamisil) 250 mg PO DAILY [facility] Last Admin: 08/24/17 07:46 Dose: 250 mg Trazodone HCl (Trazodone) 25 mg PO BEDTIME [facility] Last Admin: 08/23/17 19:35 Dose: 25 mg Trospium (Sanctura) 20 mg PO BID [facility] Last Admin: 08/24/17 07:46 Dose: 20 mg Discontinued Medications Aspirin (Aspirin) 324 mg CHEW ONETIME ONE Stop: 08/21/17 14:25 Last Admin: 08/21/17 14:38 Dose: 324 mg Enoxaparin Sodium (Lovenox) 70 mg SUBCUT Q24H [facility] Last Admin: 08/21/17 15:55 Dose: 70 mg Famotidine (Pepcid) 40 mg IVPUSH ONETIME ONE Stop: 08/21/17 14:25 Last Admin: 08/21/17 14:36 Dose: 40 mg Furosemide (Lasix) 40 mg IVPUSH Q12H [facility] Last Admin: 08/22/17 06:01 Dose: 40 mg Furosemide (Lasix) 20 mg IVPUSH Q12H [facility] Last Admin: 08/23/17 05:37 Dose: 20 mg Iopamidol (Isovue-370 (76%)) 100 ml IVPUSH ONETIME ONE Stop: 08/21/17 17:01 Last Admin: 08/21/17 17:21 Dose: Not Given Potassium Chloride (Klor-Con M20) 20 meq PO TID [facility] Last Admin: 08/22/17 07:58 Dose: 20 meq Temazepam (Restoril) 15 mg PO BEDTIME PRN PRN Reason: Insomnia Ticagrelor (Brilinta) 180 mg PO ONETIME ONE Stop: 08/21/17 14:25 Last Admin: 08/21/17 14:38 Dose: 180 mg *Q Meaningful Use (DIS) - VTE *Q VTE Criteria *Q: - Stroke *Q Stroke Criteria *Q: - AMI *Q AMI Criteria *Q:
== END 2017-08-24 14:25 | disposition home or self-care (01) | DRG 292 ==
LOC: LL.ED 14:23 → UNDOADMIN 16:02 → LL.MS 16:02 → UNDODISIN 08-24 14:25
PROVIDERS: ADMIT Family Medicine; ATTEND Family Medicine
DX: I20.8 Other forms of angina pectoris (principal); R07.9 Chest pain, unspecified; I50.9 Heart failure, unspecified; R53.1 Weakness; R11.2 Nausea with vomiting, unspecified; N17.9 Acute kidney failure, unspecified; E23.0 Hypopituitarism; K59.09 Other constipation; N40.0 Benign prostatic hyperplasia without lower urinary tract symptoms; R10.13 Epigastric pain; E87.5 Hyperkalemia; K21.9 Gastro-esophageal reflux disease without esophagitis; E03.9 Hypothyroidism, unspecified; J44.9 Chronic obstructive pulmonary disease, unspecified; D50.9 Iron deficiency anemia, unspecified; E78.5 Hyperlipidemia, unspecified; M15.0 Primary generalized (osteo)arthritis; F41.8 Other specified anxiety disorders; F10.21 Alcohol dependence, in remission; G30.9 Alzheimer's disease, unspecified; I49.3 Ventricular premature depolarization; N28.9 Disorder of kidney and ureter, unspecified; B35.1 Tinea unguium; F02.80 Dementia in other diseases classified elsewhere, unspecified severity, without behavioral disturbance, psychotic disturbance, mood disturbance, and anxiety; Z79.899 Other long term (current) drug therapy
CPT/HCPCS: 36415; 71010; 80053; 82550; 82553; 83605; 83735; 83880; 84443; 84484; 84550; 85025; 85379; 85610; 85730; 93005; 96374; 96375; 99285; A9270 ×2; G0480; J1650; J7050; 71020; 71275; 80061; 82272; 83036; 84439; 84481; 87338; 93970; J1940; S0028

== ENCOUNTER 2017-08-29 07:35 | Day surgery (SDC) | payer MEDICARE, MEDICAID ==
[~2017-08-29 07:35] MED LIST: Lactated Ringers 1,000 ML IV SCH; Sodium Chloride 0.9% 10 ML Syringe FLUSH PRN
[2017-08-29] MEDS ORDERED: fentaNYL 100 MCG/2 ML SDV ONE (08:20)
[2017-08-29] MEDS ORDERED: Propofol 200 MG/20 ML SDV ONE (08:21)
[2017-08-29] MEDS ORDERED: Midazolam 1 MG/ML 2 ML SDV ONE (08:21)
--- NOTE | 2017-08-29 08:59 | PCM.HPR ---
H & P Addendum review - H & P Addendum Review Date of Original H & P: 08/21/17 Date Reviewed: 08/29/17 Time Reviewed: 08:58 Patient was Examined: No Changes (ok to proceed with EGD)
[2017-08-29] MEDS ORDERED: Lidocaine 2% 5 ML SDV ONE (09:00)
--- NOTE | 2017-08-29 09:25 | PCM.OPNOTE ---
- General Post-Op/Procedure Note Date of Surgery/Procedure: 08/29/17 Operative Procedure(s): EGD with Bx Findings: Esophageal Erosions / ulcers Pre Op Diagnosis: Epigastric Pain Post-Op Diagnosis: Same Anesthesia Technique: MAC Primary Surgeon: Erasto Romero Anesthesia Provider: Luiza Paz Complications: None Condition: Good Free Text/Narrative:: Intake & Output 08/28/17 08/29/17 08/29/17 22:59 06:59 14:59 Intake Total 500 Balance 500
[2017-08-29 10:06] VITALS: BP 119/54
--- NOTE | 2017-08-29 11:44 | OR ---
Date of Procedure: 08/29/2017 PREOPERATIVE DIAGNOSIS: Epigastric pain. POSTOPERATIVE DIAGNOSES: 1. Esophageal erosions and ulcerations. 2. Small hiatal hernia. 3. Mild gastritis. PROCEDURE: Esophagogastroduodenoscopy with biopsy. ANESTHESIA: IV sedation. PROCEDURE IN DETAIL: The patient was brought to the procedure room, where he was placed on his left side after anesthetic spray was given and IV sedation administered. Oral bite block was placed and the upper endoscope advanced into the esophagus under direct vision without difficulty. Vocal cords were viewed and were normal. The scope was advanced to the third portion of the duodenum. Duodenum and pylorus were normal. Antrum and body of the stomach show evidence of mild gastritis. I did take two random biopsies from the antrum. Retroflexion reveals a small regular hiatal hernia. The distal esophagus has severe erosions and ulcerations that extend up into the mid esophagus. There was no bleeding or strictures, this does not appear to be malignant. I took several random biopsies from the distal esophagus and again from the mid esophagus. Air was removed and the scope withdrawn. Photographs were taken. The patient tolerated the procedure well. Findings were reviewed with JIMI Matt and will be started on a proton pump inhibitor in addition to his Carafate and H2 leeanna. He will follow up with him next week in clinic for review of pathology report. VALERIA GREENWOOD MD /[id number]
== END 2017-08-29 10:58 | disposition home or self-care (01) ==
LOC: LL.SDS 07:35
PROVIDERS: ATTEND Surgery
DX: K29.50 Unspecified chronic gastritis without bleeding (principal); K22.10 Ulcer of esophagus without bleeding; K44.9 Diaphragmatic hernia without obstruction or gangrene; E78.00 Pure hypercholesterolemia, unspecified; K21.9 Gastro-esophageal reflux disease without esophagitis; N40.0 Benign prostatic hyperplasia without lower urinary tract symptoms; F41.9 Anxiety disorder, unspecified; F32.9 Major depressive disorder, single episode, unspecified; E03.9 Hypothyroidism, unspecified; E23.0 Hypopituitarism; Z98.890 Other specified postprocedural states; Z88.8 Allergy status to other drugs, medicaments and biological substances; Z79.899 Other long term (current) drug therapy; Z87.891 Personal history of nicotine dependence
CPT/HCPCS: 43239; J2250; J2704; J3010; J7120; 00740; 88305; 88342

== ENCOUNTER 2018-05-22 09:15 | Day surgery (SDC) | payer MEDICARE, MEDICAID ==
[2018-05-22] MEDS ORDERED: Propofol 200 MG/20 ML SDV ONE ×2 (10:20→10:29)
[2018-05-22] MEDS ORDERED: Lidocaine 2% 100 MG/5 ML Syringe ONE (10:29)
--- NOTE | 2018-05-22 10:30 | PCM.HPR ---
H & P Addendum review - H & P Addendum Review Date of Original H & P: 05/01/18 Date Reviewed: 05/22/18 Time Reviewed: 10:20 Patient was Examined: No Changes (Will also do EGD for GERD and Heme pos stools)
--- NOTE | 2018-05-22 11:06 | PCM.OPNOTE ---
- General Post-Op/Procedure Note Date of Surgery/Procedure: 05/22/18 Operative Procedure(s): EGD. Colonoscopy Findings: [facility] Normal colon Pre Op Diagnosis: Anemia, heme pos, GERD Post-Op Diagnosis: Same Anesthesia Technique: MAC Primary Surgeon: Erasto Romero Complications: None Condition: Good Free Text/Narrative:: Intake & Output 05/21/18 05/22/18 05/22/18 22:59 06:59 14:59 Intake Total 800 Balance 800
[2018-05-22 14:05] VITALS: BP 156/74
--- NOTE | 2018-05-22 15:57 | OR ---
Date of Procedure: 05/22/2018 PREOPERATIVE DIAGNOSES: 1. Anemia with heme-positive stool. 2. Gastroesophageal reflux disease. POSTOPERATIVE DIAGNOSES: 1. Small hiatal hernia. 2. Normal colonoscopy. PROCEDURES: 1. EGD. 2. Colonoscopy. ANESTHESIA: IV sedation. DESCRIPTION OF PROCEDURE: The patient was brought to the procedure room, where he was placed on his left side and IV sedation administered. Oral bite block was placed and the upper endoscope advanced into the esophagus under direct vision without difficulty. The scope was advanced to the 3rd portion of the duodenum. Duodenum and pylorus were normal. Antrum and body of the stomach were normal. Retroflexion reveals a small 2 cm hiatal hernia. Squamocolumnar junction was free of erosions, ulcers, or other abnormalities. There was noted to be some bile in the stomach and also some bile that had refluxed up into the esophagus. Air was removed from the stomach and the scope withdrawn through the remaining esophagus which appeared normal. Vocal cords were viewed and were normal. The patient tolerated this portion of the procedure well. Next, colonoscopy was performed after digital rectal exam was done, which was normal. Colonoscope was inserted and advanced without difficulty through a tortuous sigmoid colon. Once I got through this, I advanced to the hepatic flexure and again experienced some difficulty and required pressure on the abdomen and changing to the supine position. I was able to get to the cecum which was confirmed by identifying the appendiceal lumen and ileocecal valve. Light was transilluminating in the right lower quadrant. Prep was good and surfaces were well visualized. Upon withdrawing the scope, the ascending, transverse, and descending colon were normal in appearance. Sigmoid colon and rectum were normal. Retroflexion was normal. Air was removed and the scope withdrawn. The patient tolerated the procedure well and returned to recovery in stable condition. I did not recommend further routine colon screening because of the patient's age. VALERIA GREENWOOD MD /[id number]
== END 2018-05-22 12:45 | disposition home or self-care (01) ==
LOC: LL.SDS 09:15
PROVIDERS: ATTEND Surgery
DX: R19.5 Other fecal abnormalities (principal); D64.9 Anemia, unspecified; K21.9 Gastro-esophageal reflux disease without esophagitis; K44.9 Diaphragmatic hernia without obstruction or gangrene; E23.2 Diabetes insipidus; E23.0 Hypopituitarism; F41.9 Anxiety disorder, unspecified; F32.9 Major depressive disorder, single episode, unspecified; Z88.6 Allergy status to analgesic agent
CPT/HCPCS: J2704; J7120

== ENCOUNTER → 2019-09-30 | Outpatient (CLI) | payer MEDICARE, MEDICAID | LOC: LL.DI 15:48 | PROVIDERS: ATTEND Physician Assistant | DX: J18.9 Pneumonia, unspecified organism (principal) | CPT/HCPCS: 71046 ==

== ENCOUNTER 2020-12-19 16:24 | Emergency (ER) | payer MEDICARE, MEDICAID ==
[2020-12-19 17:17] LABS: CHLORIDE,CL 106 mmol/L (98-107); SODIUM,NA 140 mmol/L (136-145)
[2020-12-19] MEDS: Lidocaine 2% with EPINEPHrine 1:100,000 20 ML MDV INJECT ONE (17:24)
[2020-12-19] MEDS ORDERED: Bacitracin/Neomycin/Polymyxin B Oint 0.9 GM U/D Packet TOP ONE (17:49)
--- NOTE | 2020-12-19 17:57 | EDM.PDOC ---
ED HPI GENERAL MEDICAL PROBLEM - General Chief Complaint: General Stated Complaint: fall, facial laceration Time Seen by Provider: 12/19/20 17:00 Source of Information: Reports: Patient History Limitations: Reports: No Limitations - History of Present Illness INITIAL COMMENTS - FREE TEXT/NARRATIVE: Patient slipped/tripped on curb and fell in parking lot area of grocery store. No LOC. Did make contact with ground with face and has abrasions mid portion of face. Denies headache or neck pain. Denies any limb pain. Up and ambulating. No visual changes. Might have fractured a piece off of left upper incisor but admits that had a fracture previous to that. No chest/back pain. Sat in chair at [employer] while finished shopping and came to ER when she was done. No other complaints other than the facial wounds. He says tetanus is up to date. - Related Data Allergies Allergy/AdvReac Type Severity Reaction Status Date / Time ibuprofen Allergy Stomach Verified 12/19/20 16:37 Ache Home Meds: Home Meds Desmopressin Acetate 0.1 mg PO BID #60 12/21/16 [Rx] Finasteride [Proscar] 5 mg PO DAILY #30 tablet 12/21/16 [Rx] Tamsulosin [Flomax] 0.4 mg PO BEDTIME #30 cap.er 12/21/16 [Rx] atorvaSTATin [Lipitor] 10 mg PO BEDTIME #30 12/21/16 [Rx] Cholecalciferol (Vitamin D3) [Vitamin D3] 5,000 unit PO DAILY 12/31/16 [History] Hydrocortisone [Cortef] 10 mg PO BID 08/21/17 [History] PARoxetine [Paxil] 50 mg PO BEDTIME 08/21/17 [History] Sennosides/Docusate Sodium [Senna-S Tablet] 1 each PO DAILY 08/21/17 [History] Solifenacin [Vesicare] 10 mg PO BEDTIME 08/21/17 [History] Testosterone Cypionate [Depo-Testosterone] 0.75 ml IM ASDIRECTED 08/21/17 [History] traZODone HCl [Trazodone HCl] 50 mg PO BEDTIME 08/21/17 [History] Omeprazole Magnesium [Prilosec Otc] 20 mg PO BID 05/22/18 [History] Acetaminophen [Tylenol Arthritis Pain] 1 tab PO Q8HR PRN 12/19/20 [History] Benzonatate 200 mg PO TID PRN 12/19/20 [History] Donepezil HCl [Aricept] 1 tab PO BEDTIME 12/19/20 [History] Melatonin 1 tab PO BEDTIME 12/19/20 [History] Sildenafil [Viagra] 50 mg PO BEDTIME PRN 12/19/20 [History] Past Medical History HEENT History: Reports: Cataract, Hard of Hearing Other HEENT History: 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 with resolution after surgery as below, no subsequent visual changes with the patient currently using reading glasses, severe presbycusis with no current therapy Cardiovascular History: Reports: None Other Cardiovascular History: Smoker for 50+ years Respiratory History: Reports: None Other Respiratory History: Smoker for 50+ years Gastrointestinal History: Reports: GERD, Other (See Below) Other Gastrointestinal History: Inguinal hernia Genitourinary History: Reports: BPH, Other (See Below) Other Genitourinary History: Erectile dysfunction Musculoskeletal History: Reports: Back Pain, Chronic Other Musculoskeletal History: LOWER BACK PAIN. 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 and no use since 1976 Endocrine/Metabolic History: Reports: Hypothyroidism, Other (See Below) Other Endocrine/Metabolic History: 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 Hematologic History: Reports: Anemia, Iron Deficiency, Other (See Below) Other Hematologic History: Significant iron deficiency anemia in December 2016 with no workup or blood transfusions Immunologic History: Reports: None Other Immunologic History: Panhypopituitarism Oncologic (Cancer) History: Reports: None Dermatologic History: Reports: Other (See Below) Other Dermatologic History: History of actinic keratosis, onychomycosis - Infectious Disease History Infectious Disease History: Reports: None - Past Surgical History HEENT Surgical History: Reports: Eye Surgery, Other (See Below) Other HEENT Surgeries/Procedures: Eyelid surgery unknown type GI Surgical History: Reports: Hernia, Inguinal Endocrine Surgical History: Reports: Pituitary Tumor Resection Neurological Surgical History: Reports: Other (See Below) Other Neurological Surgeries/Procedures: Craniotomy d/t pituitary adenoma infarction - Past Imaging History Past Imaging History: Reports: CAT Scan (Last CT of the brain in March 2017 with previous evaluation on 10/31/16 and CTA of the brain on 11/01/[address] of the brain on 10/23/16 and 10/24/16), Swallow Study (Last on 12/20/16 with previous postoperative evaluation in October 2016), Ultrasound (Pelvic ultrasound on 03/07/17) Social & Family History - Family History HEENT: Reports: Cataract, Other (See Below) Other HEENT Family History: Sister with cataracts Cardiac: Reports: CAD, High Cholesterol, Hypertension, [place], Other (See Below) Other Cardiac Family History: Father with fatal [place] at about age 83, mother with hypertension and hyperlipidemia Respiratory: Reports: None GI: Reports: None : Reports: None OBGYN: Reports: None Musculoskeletal: Reports: None Neurological: Reports: None Psychiatric: Reports: Anxiety, Depression, Psych Hospitalization(s), Psychosis, Other (See Below) Other Psychiatric Family History: Brother with alcohol abuse/addiction and anxiety depression disorder with inpatient therapy required, sister with anxiety depression and possible psychosis Endocrine/Metabolic: Reports: Diabetes, type II, IDDM, Other (See Below) Other Endocrine/Metabolic Family History: Sister with IDDM, mother with AODM Hematologic: Reports: None Immunologic: Reports: None Dermatologic: Reports: None Oncologic: Reports: Metastatic, Other (See Below) Other Oncologic Family History: Sister with unknown type of primary metastatic cancer in her 70s, brother with unknown type of primary metastatic cancer at age 88 - Tobacco Use Tobacco Use Status *Q: Current Every Day Tobacco User Years of Tobacco use: 0 Packs/Tins Daily: 0.1 Used Tobacco, but Quit: No Second Hand Smoke Exposure: No - Caffeine Use Caffeine Use: Reports: None - Recreational Drug Use Recreational Drug Use: No - Living Situation & Occupation Living situation: Reports: (1971, 3 children) Occupation: Retired (Retired [employer] at age 60) ED ROS GENERAL - Review of Systems Review Of Systems: Comprehensive ROS is negative, except as noted in HPI. ED EXAM, GENERAL - Physical Exam Exam: See Below Exam Limited By: No Limitations General Appearance: Alert, WD/WN, No Apparent Distress Eye Exam: Bilateral Eye: EOMI, PERRL Ears: Normal External Exam, Normal Canal Nose: No: Nasal Deformity, Nasal Swelling, Nasal Drainage Throat/Mouth: Normal Lips, Normal Voice, Other (very poor dental condition. Lots of tartar and gum resession. No obvious acute injury to teeth noted. ) Head: Other (abrasion bridge of nose and tip of nose. Laceration above upper lip mid face.) Neck: Normal Inspection, Supple, Non-Tender, Full Range of Motion Respiratory/Chest: No Respiratory Distress, Lungs Clear Cardiovascular: Regular Rate, Rhythm GI/Abdominal: Soft, Non-Tender Back Exam: No: Muscle Spasm, Paraspinal Tenderness, Vertebral Tenderness Extremities: Normal Range of Motion, Normal Capillary Refill Neurological: Alert, Oriented, CN II-XII Intact, Normal Cognition, No Motor/Sensory Deficits Psychiatric: Normal Affect, Normal Mood Skin Exam: Warm, Normal Color ED GENERAL MEDICAL PROCEDURES - Laceration/Wound Repair Middle Face Lac/wound length in cm: 2 Appearance: Subcutaneous, Stellate, Clean Anesthetic Type: Local Local Anesthesia - Lidocaine (Xylocaine): 2% with EPI Local Anesthetic Volume: 3cc Skin Prep: Saline Exploration/Debridement/Repair: Wound Explored, In a Bloodless Field, Explored to Base, No Foreign Material Found Closed with: Sutures Suture Size: 4-0 # of Sutures: 5 Suture Type: Nylon, Interrupted Sterile Dressing Applied: None Tetanus Status Addressed: Yes Complications: No Course - Vital Signs Last Recorded V/S: Last Vital Signs Temp 36.6 C 12/19/20 16:32 Pulse 88 12/19/20 16:32 Resp 17 12/19/20 16:32 BP 143/69 H 12/19/20 16:32 Pulse Ox 97 12/19/20 16:32 - Orders/Labs/Meds Orders: Active Orders 24 hr Category Date Time Status Max Facial Sinus wo Cont [CT] Stat Exams 12/19/20 16:35 Taken Labs: Laboratory Tests 12/19/20 12/19/20 Range/Units 16:50 16:50 WBC 6.8 (4.0-10.2) K/uL RBC 4.56 (4.33-5.41) M/uL Hgb 14.1 (13.1-16.8) g/dL Hct 42.4 (39.0-49.0) % MCV 93.0 (84.0-98.0) fL MCH 30.9 (28.2-33.3) pg MCHC 33.3 (31.7-36.0) g/dL RDW 14.4 H (11.2-14.1) % Plt Count 179 (150-350) K/uL Neut % (Auto) 79.1 (45.0-80.0) % Lymph % (Auto) 11.5 (10.0-50.0) % Evans % (Auto) 7.9 (2.0-14.0) % Eos % (Auto) 0.9 (0.0-5.0) % Baso % (Auto) 0.6 (0.0-2.0) % Neut # (Auto) 5.39 (1.40-7.00) K/uL Lymph # (Auto) 0.78 (0.50-3.50) K/uL Evans # (Auto) 0.54 (0.00-1.00) K/uL Eos # (Auto) 0.06 (0.00-0.50) K/uL Baso # (Auto) 0.04 (0.00-0.20) K/uL Sodium 140 (136-145) mmol/L Potassium 3.8 (3.5-5.1) mmol/L Chloride 106 (98-107) mmol/L Carbon Dioxide 24.0 (21.0-32.0) mmol/L BUN 24 H (7-18) mg/dL Creatinine 1.10 (0.51-1.17) mg/dL Est Cr Clr Drug Dosing TNP Estimated GFR (MDRD) > 60 mL/min Glucose 114 H (74-106) mg/dL Calcium 8.6 (8.5-10.1) mg/dL Total Bilirubin 0.4 (0.2-1.0) mg/dL AST 11 L (15-37) U/L ALT 27 (12-78) U/L Alkaline Phosphatase 83 (46-116) IU/L Total Protein 6.7 (6.4-8.2) g/dL Albumin 3.7 (3.4-5.0) g/dL Meds: Medications Discontinued Medications Generic Name Dose Route Start Last Admin Trade Name Freq PRN Reason Stop Dose Admin Lidocaine/Epinephrine 20 ml 12/19/20 17:14 12/19/20 17:24 Xylocaine 2% With Epinephrine 1:100,000 INJECT 12/19/20 17:15 20 ml ONETIME ONE Administration Neomycin/Polymyxin/Bacitracin 1 each 12/19/20 17:49 Triple Antibiotic Oint TOP 12/19/20 17:50 ONETIME ONE - Re-Assessments/Exams Free Text/Narrative Re-Assessment/Exam: 12/19/20 18:02 CT performed due to fall/trauma to rule out fracture in mid face area. CT negative for bony fracture. Patient denied neuro changes. No neck tenderness. No additional imaging at this time is indicated. Baseline CBC/Chem overall unremarkable. Laceration located above mouth repaired. Precautions reviewed. To get sutures out Saturday morning. To return for recheck if any neuro changes/problems/signs of infection. Highly encouraged to see a dentist to start catching up on routine dental health. Significant plaque buildup between all teeth/poor gum health. Patient admits he has not seen a dentist in 10-20 years. Departure - Departure Time of Disposition: 17:57 Disposition: Home, Self-Care 01 Condition: Good Clinical Impression: Fall Qualifiers: Encounter type: initial encounter Qualified Code(s): W19.XXXA - Unspecified fall, initial encounter Facial laceration Qualifiers: Encounter type: initial encounter Qualified Code(s): S01.81XA - Laceration without foreign body of other part of head, initial encounter Facial contusion Qualifiers: Encounter type: initial encounter Qualified Code(s): S00.83XA - Contusion of other part of head, initial encounter - Discharge Information *PRESCRIPTION DRUG MONITORING PROGRAM REVIEWED*: Not Applicable *COPY OF PRESCRIPTION DRUG MONITORING REPORT IN PATIENT SHANICE: Not Applicable Instructions: Laceration Care, Adult, [id number] Referrals: Shabana Peter NP [Primary Care Provider] - Forms: ED Department Discharge Additional Instructions: OK to apply topical antibiotic ointment to healing abrasions/laceration several times a day. If there are any problems such as signs of infection or neurologic changes please return for re-evaluation. Sutures should come out next Saturday. Please call our clinic here at the hospital to arrange a time to come in for the suture removal. Sepsis Event Note (ED) - Evaluation Sepsis Screening Result: No Definite Risk - Focused Exam Vital Signs: Vital Signs Temp Pulse Resp BP Pulse Ox 12/19/20 16:32 36.6 C 88 17 143/69 H 97 - My Orders Last 24 Hours: My Active Orders 12/19/20 16:35 Max Facial Sinus wo Cont [CT] Stat - Assessment/Plan Last 24 Hours: My Active Orders 12/19/20 16:35 Max Facial Sinus wo Cont [CT] Stat
[2020-12-19 18:58] VITALS: BP 153/72; PULSE 58
== END 2020-12-19 18:11 | disposition home or self-care (01) ==
LOC: LL.ED 16:24
DX: S01.81XA Laceration without foreign body of other part of head, initial encounter (principal); S00.31XA Abrasion of nose, initial encounter; K21.9 Gastro-esophageal reflux disease without esophagitis; R56.9 Unspecified convulsions; Z72.0 Tobacco use; Z88.6 Allergy status to analgesic agent; Z79.899 Other long term (current) drug therapy; W01.0XXA Fall on same level from slipping, tripping and stumbling without subsequent striking against object, initial encounter; Y92.481 Parking lot as the place of occurrence of the external cause
CPT/HCPCS: 12011; 36415; 70486; 80053; 85025; 99283; 99284-25

== ENCOUNTER 2024-07-27 17:33 | Inpatient (IN) | payer MEDICARE, MEDICAID ==
[2024-07-27] MEDS: Sodium Chloride 0.9% 1,000 ML IV ONE ×2 (17:44→18:38)
[2024-07-27 17:47] LABS: BASOPHILS ABSOLUTE AUTO 0.07 K/uL (0.00-0.20); BASOPHILS PERCENT AUTO 0.6 % (0.0-2.0); EOSINOPHILS ABSOLUTE AUTO 0.06 K/uL (0.00-0.50); EOSINOPHILS PERCENT AUTO 0.5 % (0.0-5.0); HEMATOCRIT 43.5 % (39.0-49.0); HEMOGLOBIN 14.8 g/dL (13.1-16.8); LYMPHOCYTES ABSOLUTE AUTO 1.45 K/uL (0.50-3.50); LYMPHOCYTES PERCENT AUTO 12.7 % (10.0-50.0); MEAN CORPUSCULAR HEMOGLOBIN 31.6 pg (28.2-33.3); MEAN CORPUSCULAR VOLUME 92.8 fL (84.0-98.0); MONOCYTES ABSOLUTE AUTO 1.39 K/uL (0.00-1.00); MONOCYTES PERCENT AUTO 12.2 % (2.0-14.0); NEUTROPHILS ABSOLUTE AUTO 8.42 K/uL (1.40-7.00); PLATELET COUNT,PLT 228 K/uL (150-350); RED BLOOD CELL COUNT 4.69 M/uL (4.33-5.41); RED CELL DISTRIBUTION WIDTH 14.4 % (11.2-14.1); WHITE BLOOD CELL COUNT,WBC 11.4 K/uL (4.0-10.2)
[2024-07-27 18:15] LABS: ALANINE AMINOTRANSFERASE,ALT 30 U/L (12-78); ALBUMIN 3.7 g/dL (3.4-5.0); ALKALINE PHOSPHATASE 91 IU/L (46-116); ANION GAP 9.6 meq/L (7-15); ASPARTATE AMNIOTRANSFERASE,AST 67 U/L (15-37); BILIRUBIN TOTAL 1.7 mg/dL (0.2-1.0); BLOOD UREA NITROGEN,BUN 16 mg/dL (7-18); CARBON DIOXIDE,CO2 24.4 mmol/L (21.0-32.0); CHLORIDE,CL 105 mmol/L (98-107); CREATINE KINASE,CK 2881 U/L (26-308); CREATININE 1.76 mg/dL (0.51-1.17); ESTIMATED GFR 38 mL/min (>=60); GLUCOSE RANDOM 105 mg/dL (70-99); POTASSIUM,K 4.5 mmol/L (3.5-5.1); PRO B-TYPE NATRIUR PEPT,BNPPRO 1259 pg/mL (0-125); PROTEIN TOTAL,TP 6.6 g/dL (6.4-8.2); SODIUM,NA 139 mmol/L (136-145)
[2024-07-27] MEDS: Lidocaine 2% HCl 11 ML Jelly Filled Syringe TOP ONE (18:45)
[2024-07-27 18:55] LABS: APPEARANCE,URINE SLIGHTLY CLOUDY; BILIRUBIN,URINE MODERATE (NEGATIVE); COLOR,URINE DARK YELLOW; GLUCOSE,URINE NEGATIVE (NEGATIVE); KETONES,URINE 40 mg/dL (NEGATIVE); LEUKOCYTE ESTERASE,URINE NEGATIVE (NEGATIVE); NITRITE,URINE NEGATIVE (NEGATIVE); OCCULT BLOOD,URINE TRACE-LYSED (NEGATIVE); PH,URINE 5.5 (5.0-9.0); PROTEIN,URINE 30 mg/dL (NEGATIVE); UROBILINOGEN,URINE 0.2 E.U./dL (0.2-1.0)
[2024-07-27 19:00] LABS: BACTERIA,URINE NOT SEEN /HPF (NONE TO FEW); RBC,URINE 0-5 /HPF; WBC,URINE 0-5 /HPF
[2024-07-27] MEDS ORDERED: Ondansetron 4 MG/2 ML SDV IVPUSH PRN (20:05)
[2024-07-27] MEDS ORDERED: Acetaminophen 325 MG Tab PO PRN (20:05)
[2024-07-27] MEDS ORDERED: Sodium Chloride 0.9% 1,000 ML IV SCH (20:15)
[2024-07-27] MEDS ORDERED: Polyethylene Glycol 3350 Powder 17 GM Packet PO PRN (20:51)
[2024-07-28] MEDS: Sodium Chloride 0.9% 1,000 ML IV SCH ×2 (00:05→10:08)
[2024-07-28] MEDS: Lidocaine 2% HCl 11 ML Jelly Filled Syringe ONE (00:55)
[2024-07-28] MEDS: Memantine 10 MG Tab PO SCH (07:29)
[2024-07-28] MEDS: PARoxetine 20 MG Tab PO SCH (07:29)
[2024-07-28] MEDS: Oxybutynin 5 MG Tab.ER PO SCH (07:29)
[2024-07-28] MEDS: Levothyroxine 100 MCG Tab PO SCH (07:29)
[2024-07-28] MEDS: Finasteride 5 MG Tab PO SCH (07:29)
[2024-07-28] MEDS: Omeprazole 20 MG Cap.CR PO SCH (07:29)
[2024-07-28 07:34] LABS: BASOPHILS ABSOLUTE AUTO 0.04 K/uL (0.00-0.20); BASOPHILS PERCENT AUTO 0.5 % (0.0-2.0); EOSINOPHILS ABSOLUTE AUTO 0.12 K/uL (0.00-0.50); EOSINOPHILS PERCENT AUTO 1.4 % (0.0-5.0); HEMATOCRIT 36.7 % (39.0-49.0); HEMOGLOBIN 12.4 g/dL (13.1-16.8); LYMPHOCYTES ABSOLUTE AUTO 0.75 K/uL (0.50-3.50); LYMPHOCYTES PERCENT AUTO 8.9 % (10.0-50.0); MEAN CORPUSCULAR HEMOGLOBIN 31.9 pg (28.2-33.3); MEAN CORPUSCULAR HGB CONC 33.8 g/dL (31.7-36.0); MEAN CORPUSCULAR VOLUME 94.3 fL (84.0-98.0); MONOCYTES ABSOLUTE AUTO 1.19 K/uL (0.00-1.00); MONOCYTES PERCENT AUTO 14.2 % (2.0-14.0); NEUTROPHILS ABSOLUTE AUTO 6.28 K/uL (1.40-7.00); PLATELET COUNT,PLT 197 K/uL (150-350); RED BLOOD CELL COUNT 3.89 M/uL (4.33-5.41); RED CELL DISTRIBUTION WIDTH 14.3 % (11.2-14.1); WHITE BLOOD CELL COUNT,WBC 8.4 K/uL (4.0-10.2)
[2024-07-28 08:22] LABS: CALCIUM 7.7 mg/dL (8.5-10.1); CARBON DIOXIDE,CO2 22.7 mmol/L (21.0-32.0); CREATININE 1.49 mg/dL (0.51-1.17); EST CRCL DRUG DOSING (CG) 37.32 mL/min; POTASSIUM,K 3.7 mmol/L (3.5-5.1)
[2024-07-28] MEDS: Enoxaparin 30 MG/0.3 ML Syringe SUBCUT SCH (09:21)
[2024-07-28] MEDS: Tamsulosin 0.4 MG Cap.ER PO SCH (19:22)
[2024-07-28] MEDS: atorvaSTATin 10 MG Tab PO SCH (19:22)
[2024-07-28] MEDS: traZODone 50 MG Tab PO SCH (19:23)
[2024-07-28] MEDS: Thiamine 100 MG Tab PO SCH (19:23)
[2024-07-28] MEDS: Donepezil 10 MG Tab PO SCH (19:23)
[2024-07-29 07:40] LABS: BASOPHILS ABSOLUTE AUTO 0.03 K/uL (0.00-0.20); BASOPHILS PERCENT AUTO 0.4 % (0.0-2.0); EOSINOPHILS ABSOLUTE AUTO 0.15 K/uL (0.00-0.50); HEMATOCRIT 34.7 % (39.0-49.0); HEMOGLOBIN 11.7 g/dL (13.1-16.8); LYMPHOCYTES ABSOLUTE AUTO 0.74 K/uL (0.50-3.50); MEAN CORPUSCULAR HEMOGLOBIN 31.7 pg (28.2-33.3); MEAN CORPUSCULAR HGB CONC 33.7 g/dL (31.7-36.0); MONOCYTES ABSOLUTE AUTO 0.69 K/uL (0.00-1.00); MONOCYTES PERCENT AUTO 9.4 % (2.0-14.0); NEUTROPHILS ABSOLUTE AUTO 5.76 K/uL (1.40-7.00); NEUTROPHILS PERCENT AUTO 78.2 % (45.0-80.0); PLATELET COUNT,PLT 181 K/uL (150-350); RED BLOOD CELL COUNT 3.69 M/uL (4.33-5.41); RED CELL DISTRIBUTION WIDTH 14.2 % (11.2-14.1); WHITE BLOOD CELL COUNT,WBC 7.4 K/uL (4.0-10.2)
[2024-07-29 08:07] LABS: ALBUMIN 2.8 g/dL (3.4-5.0); ANION GAP 9.8 meq/L (7-15); BILIRUBIN TOTAL 1.5 mg/dL (0.2-1.0); CARBON DIOXIDE,CO2 23.2 mmol/L (21.0-32.0); CREATININE 1.15 mg/dL (0.51-1.17); EST CRCL DRUG DOSING (CG) 48.74 mL/min; POTASSIUM,K 3.8 mmol/L (3.5-5.1); PROTEIN TOTAL,TP 5.6 g/dL (6.4-8.2)
[2024-07-29 08:13] LABS: CALCIUM 7.8 mg/dL (8.5-10.1)
[2024-07-29] MEDS: Lactated Ringers 1,000 ML IV ONE (12:04)
[2024-07-29] MEDS: Lactated Ringers 1,000 ML IV SCH (13:48)
[2024-07-30 08:18] LABS: ANION GAP 7.3 meq/L (7-15); CALCIUM 7.9 mg/dL (8.5-10.1); CARBON DIOXIDE,CO2 25.7 mmol/L (21.0-32.0); POTASSIUM,K 3.6 mmol/L (3.5-5.1)
[2024-07-30 08:25] LABS: CREATININE 0.99 mg/dL (0.51-1.17); EST CRCL DRUG DOSING (CG) 56.62 mL/min
[2024-07-30] MEDS: Furosemide 20 MG/2 ML VIAL IVPUSH ONE (09:37)
[2024-07-30] MEDS: Sodium Chloride 0.9% 10 ML Syringe FLUSH PRN (09:38)
[2024-07-31] MEDS: Furosemide 20 MG/2 ML VIAL IVPUSH ONE (04:52)
[2024-07-31 05:16] VITALS: BP 148/75; PULSE 81
[2024-07-31 07:36] LABS: BASOPHILS ABSOLUTE AUTO 0.03 K/uL (0.00-0.20); BASOPHILS PERCENT AUTO 0.6 % (0.0-2.0); EOSINOPHILS ABSOLUTE AUTO 0.13 K/uL (0.00-0.50); EOSINOPHILS PERCENT AUTO 2.5 % (0.0-5.0); HEMATOCRIT 35.1 % (39.0-49.0); LYMPHOCYTES ABSOLUTE AUTO 0.63 K/uL (0.50-3.50); LYMPHOCYTES PERCENT AUTO 12.1 % (10.0-50.0); MEAN CORPUSCULAR HEMOGLOBIN 31.6 pg (28.2-33.3); MEAN CORPUSCULAR HGB CONC 34.2 g/dL (31.7-36.0); MEAN CORPUSCULAR VOLUME 92.4 fL (84.0-98.0); MONOCYTES ABSOLUTE AUTO 0.63 K/uL (0.00-1.00); MONOCYTES PERCENT AUTO 12.1 % (2.0-14.0); NEUTROPHILS ABSOLUTE AUTO 3.77 K/uL (1.40-7.00); NEUTROPHILS PERCENT AUTO 72.7 % (45.0-80.0); PLATELET COUNT,PLT 222 K/uL (150-350); WHITE BLOOD CELL COUNT,WBC 5.2 K/uL (4.0-10.2)
[2024-07-31 08:03] LABS: ANION GAP 7.6 meq/L (7-15); CALCIUM 8.6 mg/dL (8.5-10.1); CARBON DIOXIDE,CO2 27.4 mmol/L (21.0-32.0); CREATININE 1.19 mg/dL (0.51-1.17); EST CRCL DRUG DOSING (CG) 47.1 mL/min; POTASSIUM,K 3.5 mmol/L (3.5-5.1)
== END 2024-07-31 11:00 | DRG 565 ==
LOC: LL.ED 17:33 → LL.MS 19:42
PROVIDERS: ADMIT Emergency Medicine; ATTEND Family Medicine
DX: T79.6XXA Traumatic ischemia of muscle, initial encounter (principal); E23.0 Hypopituitarism; S80.12XA Contusion of left lower leg, initial encounter; S70.02XA Contusion of left hip, initial encounter; F03.93 Unspecified dementia, unspecified severity, with mood disturbance; F03.94 Unspecified dementia, unspecified severity, with anxiety; N17.9 Acute kidney failure, unspecified; Z88.6 Allergy status to analgesic agent; I50.9 Heart failure, unspecified; E86.0 Dehydration; H91.90 Unspecified hearing loss, unspecified ear; N40.0 Benign prostatic hyperplasia without lower urinary tract symptoms; M54.9 Dorsalgia, unspecified; G89.29 Other chronic pain; E03.9 Hypothyroidism, unspecified; K21.9 Gastro-esophageal reflux disease without esophagitis; W19.XXXA Unspecified fall, initial encounter; Z88.8 Allergy status to other drugs, medicaments and biological substances; Z79.82 Long term (current) use of aspirin; Z79.899 Other long term (current) drug therapy; Z98.890 Other specified postprocedural states; Y92.009 Unspecified place in unspecified non-institutional (private) residence as the place of occurrence of the external cause
CPT/HCPCS: 36415; 51702; 71045; 72170; 73620-LT; 80048; 80053; 81001; 82550; 83605; 83735; 83880; 85025; 85379; 87070; 87205; 93005; 93010; 93971; 94761; 96360; 97110-GP; 97162-GP; 97165-GO; 97530-GO; 99223; 99232; 99233; 99239; 99285-25; A9270-GY; J1650; J1940; J3490; J7030; J7120; U0002

== ENCOUNTER 2025-05-19 16:53 | Emergency (ER) | payer MEDICARE, MEDICAID ==
[2025-05-19 17:30] LABS: BASOPHILS ABSOLUTE AUTO 0.04 K/uL (0.00-0.20); BASOPHILS PERCENT AUTO 0.5 % (0.0-2.0); EOSINOPHILS ABSOLUTE AUTO 0.14 K/uL (0.00-0.50); EOSINOPHILS PERCENT AUTO 1.8 % (0.0-5.0); HEMATOCRIT 42.1 % (39.0-49.0); HEMOGLOBIN 14.3 g/dL (13.1-16.8); IMMATURE GRAN ABSOLUTE AUTO 0.01 10^3/uL (0.00-0.04); IMMATURE GRAN PERCENT AUTO 0.1 % (0.0-0.4); LYMPHOCYTES ABSOLUTE AUTO 0.79 K/uL (0.50-3.50); LYMPHOCYTES PERCENT AUTO 10.4 % (10.0-50.0); MEAN CORPUSCULAR HEMOGLOBIN 31.5 pg (28.2-33.3); MEAN CORPUSCULAR VOLUME 92.7 fL (84.0-98.0); MONOCYTES ABSOLUTE AUTO 0.68 K/uL (0.00-1.00); MONOCYTES PERCENT AUTO 8.9 % (2.0-14.0); NEUTROPHILS ABSOLUTE AUTO 5.95 K/uL (1.40-7.00); NEUTROPHILS PERCENT AUTO 78.3 % (45.0-80.0); PLATELET COUNT,PLT 201 K/uL (150-350); RED BLOOD CELL COUNT 4.54 M/uL (4.33-5.41); RED CELL DISTRIBUTION WIDTH 13.4 % (11.2-14.1); WHITE BLOOD CELL COUNT,WBC 7.6 K/uL (4.0-10.2)
[2025-05-19 17:54] LABS: ALANINE AMINOTRANSFERASE,ALT 18 U/L (12-78); ALBUMIN 3.4 g/dL (3.4-5.0); ALKALINE PHOSPHATASE 102 IU/L (46-116); ANION GAP 9.3 meq/L (7-15); ASPARTATE AMNIOTRANSFERASE,AST 12 U/L (15-37); BILIRUBIN TOTAL 0.3 mg/dL (0.2-1.0); BLOOD UREA NITROGEN,BUN 18 mg/dL (7-18); CALCIUM 8.2 mg/dL (8.5-10.1); CARBON DIOXIDE,CO2 28.7 mmol/L (21.0-32.0); CHLORIDE,CL 106 mmol/L (98-107); CREATININE 1.43 mg/dL (0.51-1.17); GLUCOSE RANDOM 108 mg/dL (70-99); MAGNESIUM 2.3 mg/dL (1.8-2.4); POTASSIUM,K 3.7 mmol/L (3.5-5.1); PROTEIN TOTAL,TP 6.6 g/dL (6.4-8.2); SODIUM,NA 144 mmol/L (136-145)
[2025-05-19 17:55] LABS: ESTIMATED GFR 49 mL/min (>=60); PTT,PARTIAL THROMBOPLSTIN TIME 25.6 SEC (23.8-34.4)
[2025-05-19] MEDS ORDERED: Heparin Sodium/0.45% NaCl 500 ML IV SCH (18:30)
[2025-05-19] MEDS: Heparin Sodium 5,000 Units/ML Vial IVPUSH ONE (19:00)
[2025-05-19] MEDS: Sodium Chloride 0.9% 10 ML Syringe FLUSH PRN (19:01)
[2025-05-19] MEDS: Apixaban 5 MG Tab PO ONE ×2 (19:16→19:29)
[2025-05-19 19:17] VITALS: BP 147/70; PULSE 87
== END 2025-05-19 19:33 ==
LOC: LL.ED 16:53 → LL.MS 18:28 → UNDOADMIN 18:28
DX: I82.401 Acute embolism and thrombosis of unspecified deep veins of right lower extremity (principal); I50.9 Heart failure, unspecified; E78.00 Pure hypercholesterolemia, unspecified; N18.9 Chronic kidney disease, unspecified; Z88.6 Allergy status to analgesic agent; Z79.899 Other long term (current) drug therapy; Z79.890 Hormone replacement therapy
CPT/HCPCS: 36415; 73630-LT; 80053; 83735; 85025; 85610; 85730; 93970; 96374; 99284-25; A9270-GY; J1644